=== PATIENT | female | born 1945 | race African-American/Black ===

== ENCOUNTER 2017-06-08 12:51 | Outpatient (CLI) | payer MEDICARE | END 2017-06-08 12:52 | disposition home or self-care (01) | LOC: BICBD 12:51 | PROVIDERS: ATTEND Family Medicine | DX: Z12.31 Encounter for screening mammogram for malignant neoplasm of breast (principal); Z13.820 Encounter for screening for osteoporosis; M85.859 Other specified disorders of bone density and structure, unspecified thigh | CPT/HCPCS: 77063; 77067; 77080 ==

== ENCOUNTER 2017-06-17 13:42 | Outpatient (CLI) | payer MEDICARE | END 2017-06-17 13:43 | disposition home or self-care (01) | LOC: BICMAMMO 13:42 | PROVIDERS: ATTEND Family Medicine | DX: Z12.31 Encounter for screening mammogram for malignant neoplasm of breast (principal); Z80.3 Family history of malignant neoplasm of breast | CPT/HCPCS: G0206; G0279 ==

== ENCOUNTER 2017-10-29 21:43 | Observation (INO) | payer MEDICARE ==
--- NOTE | 2017-10-29 22:31 | RAD ---
ONE VIEW CHEST: 10/29/17 COMPARISON: 03/22/16 HISTORY: Pain. FINDINGS: There are sternotomy wires. Atherosclerosis of the aorta. Normal cardiac silhouette. The lungs and pl eural spaces are clear. No pneumothorax. Chronic changes of the right shoulder. IMPRESSION: Atherosclerosis. No acute cardiopulmonary process. POS: [facility]
[2017-10-29 22:32] LABS: #Eosinphils 0.1 thou/uL (0.0-0.7); #Lymphocytes 3.7 thou/uL (1.20-3.40); #Monocytes 0.7 thou/uL (0.11-0.59); #Neutrophils 3.1 thou/uL (1.40-6.50); %Basophils 0.6 % (0.0-1.0); %Eosinophils 1.9 % (0.0-10.0); %Lymphocytes 47.9 % (21.0-51.0); %Monocytes 8.6 % (0.0-10.0); %Neutrophils 40.9 % (42.0-75.0); Mean Corpuscular HGB CONC 33.9 g/dL (32.0-36.0); Mean Corpuscular Hemoglobin 28.6 pg (27.0-31.0); Mean Corpuscular Volume 84.2 fl (81.0-99.0); Mean Platelet Volume 7.7 fL (7.4-10.4); Platelet Count 205 thou/uL (130-400); RBC Distribution Width 11.9 % (11.5-14.5); Red Blood Cell (RBC) Count 4.55 mill/uL (4.20-5.40); White Blood Cell (WBC) Count 7.6 thou/uL (4.8-10.8)
[2017-10-29 22:54] LABS: ALT (SGPT) 19 U/L (8-55); AST (SGOT) 22 U/L (5-34); Albumin 3.7 g/dL (3.4-4.8); Alkaline Phosphatase 95 U/L (40-150); Anion Gap 15 mmol/L (10-20); BUN (Urea Nitrogen) 14 mg/dL (9.8-20.1); Bilirubin, Total 0.3 mg/dL (0.2-1.2); CK (CPK) 134 U/L (29-168); Calc. Creatinine Clearance 0 mL/min (70-130); Calcium 9.6 mg/dL (7.8-10.44); Carbon Dioxide 28 mmol/L (23-31); Chloride 102 mmol/L (98-107); Estimated GFR-MDRD 63; Globulin 3.3 g/dL (2.4-3.5); Glucose 133 mg/dL (83-110); Lipase 29 U/L (8-78); Potassium 3.9 mmol/L (3.5-5.1); Sodium 141 mmol/L (136-145)
[2017-10-29 22:57] LABS: CKMB 1.3 ng/mL (0-6.6); Troponin I 0.044 ng/mL (< 0.028)
--- NOTE | 2017-10-29 23:47 | PDOC.FPRHP ---
- History of Present Illness Chief Complaint: palpitations History of Present Illness: 72 yo F w/ PMH of CAD, w/ valve repiar, DM2, HTN, HLD, CKD2 comes in with palpitations. She states she often has palpitations a few times a week but today she had 2-3 episodes in close succession so decided to come in for evaluation. During hospitalization in 2016 she was noted to have a 10 beat run of non-sustained vtach and d/c'd home with metoprolol. She denies any chest pain or shortness of breath. She was sitting when the palpitations came on, they last less than 10 seconds at a time. She has had a mild cough for the last week or so, non-productive. The patient has been very anxious as of late especially over financial constraints. ED Course: EKG unremarkable trop 0.44 - Allergies/Adverse Reactions Allergies Allergy/AdvReac Type Severity Reaction Status Date / Time codeine Allergy Verified 03/22/16 22:08 nitroglycerin Allergy Rash Verified 10/30/17 01:28 Penicillins Allergy Verified 03/22/16 22:08 - Home Medications Medication Instructions Recorded Confirmed Type Aspirin [Aspirin EC] 1 tab PO DAILY 12/31/15 10/30/17 History Ferrous Sulfate [Iron] 1 cap PO DAILY 12/31/15 10/30/17 History Cholecalciferol (Vitamin D3) 1,000 unit PO DAILY 02/20/16 10/30/17 History [Vitamin D3] Atorvastatin Calcium 40 mg PO HS #30 tablet 03/24/16 10/30/17 Rx Metoprolol Tartrate 25 mg PO BID #60 tab 03/24/16 10/30/17 Rx metFORMIN HCl 500 mg PO BID-WM #60 tab 03/24/16 10/30/17 Rx Celecoxib [Celebrex] 100 mg PO BID 10/29/17 10/30/17 History Escitalopram Oxalate 5 mg PO DAILY PRN 10/29/17 10/29/17 History Lorazepam [Ativan] 0.5 mg PO BID PRN 10/29/17 10/29/17 History Valsartan/Hydrochlorothiazide 1 tab PO DAILY 10/29/17 10/30/17 History [Valsartan-Hctz 160-12.5 mg Tab] amLODIPine Besylate [Norvasc] 5 mg PO DAILY 10/30/17 10/30/17 History diphenhydrAMINE HCl/Zinc Acet 1 applic TOP DAILY PRN 10/30/17 10/30/17 History [Banophen Anti-Itch 2% Cream] - History PMHx: CAD, s/p repair, palpitations, HTN, HLD, hepatic steatosis, OA, CKD2, TIA PSHx: Aortic valve repair 2016, cath with no stents in 2016 per patient, tubal ligation FHx: heart disease in mother and father Social: 60 pack-year smoking history, quit in 2004, no alcohol or drugs - Review of Systems General: denies: fever/chills ENT: denies: nasal congestion, rhinorrhea Respiratory: denies: cough, shortness of breath Cardiovascular: reports: palpitation. denies: chest pain, orthopnea Gastrointestinal: denies: nausea, vomiting, diarrhea, constipation, abdominal pain, GI bleeding Genitourinary: denies: incontinence, dysuria Skin: denies: rashes, itching Musculoskeletal: reports: arthritis/arthralgias. denies: pain Neurological: denies: numbness, weakness Psychological: reports: anxiety. denies: depression - Vital signs BP: 159/69 HR: 71 RR: 18 Tmax: 98.4 Pox: 99% on RA Wt: 66.5 - Physical Exam Constitutional: NAD, awake, alert and oriented HEENT: normocephalic and atraumatic, PERRLA Neck: supple Heart: RRR, normal S1/S2, no murmurs/rubs/gallops, pulses present, no edema Lungs: CTAB, no respiratory distress, good air movement Abdomen: soft, non-tender, bowel sounds present, no masses/distention Musculoskeletal: normal structure, ROM grossly normal Neurological: no focal deficit Skin: no rash/lesions, capillary refill <2 seconds FMR H&P: Results - Labs Result Diagrams: 10/29/17 22:23 10/29/17 22:23 Lab results: WBC 7.6 thou/uL (4.8-10.8) 10/29/17 22:23 Hgb 13.0 g/dL (12.0-16.0) 10/29/17 22:23 Hct 38.4 % (36.0-47.0) 10/29/17 22:23 MCV 84.2 fl (81.0-99.0) 10/29/17 22:23 Plt Count 205 thou/uL (130-400) 10/29/17 22:23 Neutrophils % 40.9 % (42.0-75.0) L 10/29/17 22:23 Sodium 141 mmol/L (136-145) 10/29/17 22:23 Potassium 3.9 mmol/L (3.5-5.1) 10/29/17 22:23 Chloride 102 mmol/L (98-107) 10/29/17 22:23 Carbon Dioxide 28 mmol/L (23-31) 10/29/17 22:23 BUN 14 mg/dL (9.8-20.1) 10/29/17 22:23 Creatinine 1.04 mg/dL (0.6-1.1) 10/29/17 22:23 Glucose 133 mg/dL (83-110) H 10/29/17 22:23 Calcium 9.6 mg/dL (7.8-10.44) 10/29/17 22:23 Total Bilirubin 0.3 mg/dL (0.2-1.2) 10/29/17 22:23 AST 22 U/L (5-34) 10/29/17 22:23 ALT 19 U/L (8-55) 10/29/17 22:23 Alkaline Phosphatase 95 U/L (40-150) 10/29/17 22:23 Creatine Kinase 134 U/L (29-168) 10/29/17 22:23 CK-MB (CK-2) 1.3 ng/mL (0-6.6) 10/29/17 22:23 B-Natriuretic Peptide 158.5 pg/mL (0-100) H 10/29/17 22:23 Serum Total Protein 7.0 g/dL (6.0-8.3) 10/29/17 22:23 Albumin 3.7 g/dL (3.4-4.8) 10/29/17 22:23 Lipase 29 U/L (8-78) 10/29/17 22:23 FMR H&P: A/P - Problem List (1) Heart palpitations Current Visit: Yes Status: Acute Code(s): R00.2 - PALPITATIONS (2) Elevated troponin Current Visit: Yes Status: Acute Code(s): R74.8 - ABNORMAL LEVELS OF OTHER SERUM ENZYMES (3) Anxiety Current Visit: No Status: Acute Code(s): F41.9 - ANXIETY DISORDER, UNSPECIFIED (4) CKD (chronic kidney disease) stage 2, GFR 60-89 ml/min Current Visit: No Status: Acute Code(s): N18.2 - CHRONIC KIDNEY DISEASE, STAGE 2 (MILD) (5) HLD (hyperlipidemia) Current Visit: No Status: Acute Code(s): E78.5 - HYPERLIPIDEMIA, UNSPECIFIED (6) HTN (hypertension) Current Visit: No Status: Acute Code(s): I10 - ESSENTIAL (PRIMARY) HYPERTENSION (7) S/P AVR (aortic valve replacement) Current Visit: No Status: Acute Code(s): Z95.2 - PRESENCE OF PROSTHETIC HEART VALVE - Plan # Palpitations - check TSH, mag - admit to tele - repeat EKG in the AM - history of non-sustained Vtach during admit in 2016 - home metoprolol # Elevated troponin - trop 0.44, 0.1-0.15 during admit in 2016 - hx of indeterminate trops - likely chronic, will trend # HTN - home meds #HLD, hepatic steatosis - home statin # s/p valve replacement # Anxiety - home escitalopram, ativan - was just started on the above 1 month ago 2/2 stress over finances Dispo: <48 hours FMR H&P: Upper Level - Pertinent history 72 yo F with PMH of CAD s/p CABG, HTN, HLD presenting with multiple episodes of heart palpitations today. During last hospitalization, she was noted to have a run of 10 beats of Vtach. Denies any SOB, CP, dizziness, lightheadedness, vision changes, N/V, diaphoresis with these episodes, which only usually last a few seconds at most. No difference when at rest or with activity with respect to their occurence. - Pertinent findings PE: BP: 159/69 HR: 71 RR: 18 Tmax: 98.4 Pox: 99% on RA Wt: 66.5 Gen: [place] female in NAD HEENT: PERRL, EOMI, MMM, no lymphadenopathy or thyromegaly CV: RRR no murmurs, distal pulses intact Pulm: CTAB, no wheezes or rhonchi Abd: soft, NT/ND, BS present, no masses or distention Ext: no cyanosis or edema MSK: OCAMPO well, no joint or muscle pain or swelling Neuro: CN 2-12 intact, normal sensation Skin: no rashes or lesions Psych: A&O x3, appropriate in conversation - Plan Date/Time: 10/29/17 2347 72 yo F here with palpitations. 1) Palpitations: DDx includes anxiety vs arrhythmia vs ischemia. Will observe on telemetry, continue to trend troponins, check Mag, Phos, TSH. Would likely benefit from close outpatient cardiology follow up. 2) CAD: continue ASA, metoprolol, statin 3) HTN: continue home medications 4) DM2: continue metformin 5) anxiety: continue home hannah Downing, [Hernando Brooke], have evaluated this patient and agree with findings/plan as outlined by manager intern resident. Pertinent changes/additions are listed here. Attending Addendum - Attending Addendum Date/Time: 10/29/17 3150 I personally evaluated the patient and discussed the management with Dr. Moncada/ Edwardo. I agree with the History, Examination, Assessment and Plan documented above with any addition or exceptions noted below. Patient with pertinent cardiac history here with palpitations. History of this in 2016 due to SVT that has been controlled on metoprolol. She currently has no evidence of abnormal rhythm, and denies chest pain. SHe will be admitted to obs for rule out ACS as well as telemetry monitoring for dysrhythmia. If no evidence of either, can likely discharge home in AM with outpatient follow up.
[2017-10-30] MEDS ORDERED: Lorazepam 0.5 MG TAB PO PRN (00:07)
[2017-10-30] MEDS ORDERED: Metoprolol Tartrate 5 MG/5 ML VIAL ONE (00:09)
[2017-10-30] MEDS ORDERED: Ondansetron ODT 4 MG TAB PO PRN (01:01)
[2017-10-30] MEDS ORDERED: Acetaminophen 325 MG TAB PO PRN (01:01)
[2017-10-30 01:44] VITALS: BMI 27.2
[2017-10-30 02:00] LABS: Troponin I 0.042 ng/mL (< 0.028)
[2017-10-30 05:37] LABS: Troponin I 0.041 ng/mL (< 0.028)
[2017-10-30] MEDS ORDERED: metFORMIN 500 MG TAB PO SCH (08:00)
[2017-10-30] MEDS ORDERED: Aspirin 325 MG TAB PO SCH (08:00)
[2017-10-30] MEDS ORDERED: Ferrous Sulfate 325 MG TAB PO SCH (08:00)
--- NOTE | 2017-10-30 08:50 | PDOC.FM ---
- Subjective Subjective: Pt came in with palpitations yesterday, no chest pain. Resolved this am. Alfonsoies sx. Was trey overnight on tele in the 50s with occasional PVCs. She had a echo in february 2016 showing EF 50-55%. Had aortic valve replaced in December 2015. - Objective MAR Reviewed: Yes Vital Signs & Weight: Vital Signs (12 hours) Temp Pulse Resp BP BP Pulse Ox 10/30/17 07:05 97.7 F 62 12 136/60 93 L 10/30/17 03:59 98.4 F 61 16 149/70 H 92 L 10/30/17 02:02 56 L 16 148/67 H 10/30/17 01:16 97.9 F 56 L 20 10/30/17 01:01 97.9 F 56 L 20 187/79 H 98 Weight Weight 67.631 kg I&O: 10/29/17 10/30/17 10/31/17 06:59 06:59 06:59 Intake Total 0 Output Total 300 Balance -300 Result Diagrams: 10/29/17 22:23 10/29/17 22:23 <Vicky Alvarez - Last Filed: 10/30/17 08:55> - Objective Vital Signs & Weight: Vital Signs (12 hours) Temp Pulse Resp BP BP BP Pulse Ox 10/30/17 10:30 98.1 F 60 12 147/65 H 93 L 10/30/17 08:53 62 10/30/17 08:00 97.7 F 62 16 10/30/17 07:05 97.7 F 62 12 136/60 93 L 10/30/17 03:59 98.4 F 61 16 149/70 H 92 L 10/30/17 02:02 56 L 16 148/67 H 10/30/17 01:16 97.9 F 56 L 20 10/30/17 01:01 97.9 F 56 L 20 187/79 H 98 Weight Weight 67.631 kg I&O: 10/29/17 10/30/17 10/31/17 06:59 06:59 06:59 Intake Total 0 Output Total 300 450 Balance -300 -450 Result Diagrams: 10/29/17 22:23 10/29/17 22:23 <Elissa Naqvi - Last Filed: 10/30/17 12:37> Phys Exam - Physical Examination Constitutional: NAD HEENT: PERRLA, moist MMs Respiratory: no wheezing, no rales, no rhonchi, clear to auscultation bilateral Cardiovascular: RRR, no significant murmur Gastrointestinal: soft, non-tender, no distention Musculoskeletal: no edema, pulses present Psychiatric: normal affect, A&O x 3 Skin: no rash, normal turgor, cap refill <2 seconds <Vicky Alvarez - Last Filed: 10/30/17 08:55> Dx/Plan (1) Type 2 diabetes mellitus Status: Acute (2) Elevated troponin Code(s): R74.8 - ABNORMAL LEVELS OF OTHER SERUM ENZYMES Status: Acute (3) Heart palpitations Code(s): R00.2 - PALPITATIONS Status: Acute (4) Anxiety Code(s): F41.9 - ANXIETY DISORDER, UNSPECIFIED Status: Acute (5) HLD (hyperlipidemia) Code(s): E78.5 - HYPERLIPIDEMIA, UNSPECIFIED Status: Acute (6) HTN (hypertension) Code(s): I10 - ESSENTIAL (PRIMARY) HYPERTENSION Status: Acute (7) S/P AVR (aortic valve replacement) Code(s): Z95.2 - PRESENCE OF PROSTHETIC HEART VALVE Status: Acute - Plan Plan: 72 yo female with pmhx of aortic valve replacement in 2016 presents with palpitations, with 10 beats of vtach in 2016, admitted for observation. # Palpitations - TSH wnl, mg wnl - last echo in 2016, will repeat - consider cards consult - EKG pending this am - history of non-sustained Vtach during admit in 2016 - home metoprolol # Elevated troponin - downtrending - hx of indeterminate trops - no chest pain and initial EKG wnl # HTN - valsartain/hctz (160/12.5) and amlodipine 5mg daily #HLD - atorvastatin 40mg daily # s/p valve replacement -Sees Dr. Geiger #DM2 -SSI -metformen 500mg BID # Anxiety - escitalopram, ativan - was just started on the above 1 month ago 2/2 stress over finances Dispo: <48 hours <Vicky Alvarez - Last Filed: 10/30/17 08:55> Attending Addendum - Attending Addendum Date/Time: 10/30/17 1234 I personally evaluated the patient and discussed the management with Dr. Alvarez. I agree with the History, Examination, Assessment and Plan documented above with any addition or exceptions noted below. No palpitations overnight. Cardiology will see the patient for further evaluations. <Elissa Naqvi - Last Filed: 10/30/17 12:37>
[2017-10-30] MEDS ORDERED: Metoprolol Tartrate 25 MG TAB PO SCH ×3 (09:00→21:00)
[2017-10-30] MEDS ORDERED: Hydrochlorothiazide 25 MG TAB PO SCH (09:00)
[2017-10-30] MEDS ORDERED: CeleCOXIB 100 MG CAP PO SCH (09:00)
[2017-10-30] MEDS ORDERED: Aspirin 325 mg Enteric Coated Tablet PO SCH (09:00)
[2017-10-30] MEDS ORDERED: Amlodipine 5 MG TAB PO SCH (09:00)
[2017-10-30] MEDS ORDERED: Enoxaparin Sodium 40 MG/0.4 ML SYRINGE SC SCH (09:00)
[2017-10-30] MEDS ORDERED: Escitalopram Oxalate 10 mg Tablet PO SCH (09:00)
[2017-10-30] MEDS ORDERED: Valsartan 80 MG TAB PO SCH (09:00)
[2017-10-30 11:24] VITALS: BP 147/65; TEMP 98.1
--- NOTE | 2017-10-30 12:47 | CON ---
DATE OF CONSULTATION: 10/30/2017 HISTORY OF PRESENT ILLNESS: This patient is a 72-year-old woman with a history of aortic valve replacementwho presents for evaluation of palpitations. The patient in 2016 underwent a cardiac evaluation. She was found to have severe aortic stenosis. The patient subsequently underwent a cardiac catheterization. She was found to have a 40%-50% lesion in left circumflex artery, 50%-60% distal left circumflex lesion, and a 30%-40% RCA lesion. The patient underwent aortic valve replacement. The patient was in her usual state of health until yesterday when she presented with the onset of palpitations. The patient states for a brief second or two the patient would feel brief palpitations that would last a second or two. This occurred for a prolonged period of time, and she came to the emergency room for further evaluation. The patient denied having any chest discomfort. She reports having dyspnea on exertion. The patient denies having any PND or orthopnea. PAST MEDICAL HISTORY: 1. History of hypertension. 2. Coronary artery disease. 3. History of aortic valve replacement. 4. Arthritis. 5. History of transient ischemic attack. PAST SURGICAL HISTORY: Tubal ligation, cholecystectomy, and aortic valve replacement. ALLERGIES: CODEINE and PENICILLIN. SOCIAL HISTORY: Former smoker. MEDICATIONS ON ADMISSION: Aspirin 81 daily, Diovan 160/12.5 daily, metoprolol 25 b.i.d., iron sulfate 1 capsule daily, Lipitor 40 at bedtime, metformin 500 b.i.d., Celebrex 100 b.i.d. REVIEW OF SYSTEMS: A 10-point system, otherwise, unremarkable except for joint discomfort. PHYSICAL EXAMINATION: GENERAL: A well-developed woman in no acute distress. VITAL SIGNS: Blood pressure 147/65. NECK: No jugular distention, no carotid bruits. LUNGS: Clear to auscultation. HEART: Regular rate and rhythm, normal S1 and S2. A 1/6 systolic murmur. ABDOMEN: Soft and nondistended. EXTREMITIES: Showed no edema. SKIN: Warm and dry. NEUROLOGIC EXAM: Nonfocal. VASCULAR: Radial pulses are 2+. LABORATORY RESULTS: Her white blood count 7.6, hemoglobin 13.0, hematocrit 38.4 , platelets are 205. Her sodium is 141, potassium 3.9 chloride 102, bicarbonate 28, BUN 14, creatinine is 1.0, glucose 133. BNP is 158. Troponin was 0.44. TSH was 1.79. White blood cell count 7.6, hemoglobin 13.0, hematocrit 38.4, platelets 205. D-dimer was 0.38. Her EKG revealed her to have normal sinus rhythm with a normal ECG. IMPRESSION: 1. Palpitations. 2. History of aortic valve replacement. 3. History of coronary artery disease. 4. History of transient ischemic attack. 5. Hypertension. 6. Dyslipidemia. 7. History of tobacco abuse. This patient presents for evaluation of palpitations. From a cardiac standpoint , we would recommend she have placement of an event monitor. I would recommend a repeat echocardiogram and reevaluate her left ventricular function. We will arrange for outpatient followup. RANDY
[2017-10-30] MEDS ORDERED: Atorvastatin Calcium 40 MG TAB PO SCH (21:00)
== END 2017-10-30 14:33 | disposition home or self-care (01) ==
LOC: ERS 21:43 → 2SW 23:00
PROVIDERS: ADMIT Student in an Organized Health Care Education/Training Program; ATTEND Student in an Organized Health Care Education/Training Program
DX: R00.2 Palpitations (principal); I25.10 Atherosclerotic heart disease of native coronary artery without angina pectoris; I12.9 Hypertensive chronic kidney disease with stage 1 through stage 4 chronic kidney disease, or unspecified chronic kidney disease; E11.22 Type 2 diabetes mellitus with diabetic chronic kidney disease; N18.2 Chronic kidney disease, stage 2 (mild); E78.5 Hyperlipidemia, unspecified; M19.90 Unspecified osteoarthritis, unspecified site; R74.8 Abnormal levels of other serum enzymes; K76.0 Fatty (change of) liver, not elsewhere classified; F41.9 Anxiety disorder, unspecified; Z86.73 Personal history of transient ischemic attack (TIA), and cerebral infarction without residual deficits; Z87.891 Personal history of nicotine dependence; Z88.0 Allergy status to penicillin; Z88.5 Allergy status to narcotic agent; Z88.8 Allergy status to other drugs, medicaments and biological substances; Z79.82 Long term (current) use of aspirin; Z79.84 Long term (current) use of oral hypoglycemic drugs; Z79.899 Other long term (current) drug therapy; Z95.2 Presence of prosthetic heart valve; Z95.1 Presence of aortocoronary bypass graft
CPT/HCPCS: 71045; 82550; 82553; 82962; 83690; 83735; 83880; 84484 ×3; 85379; 93005 ×2; 94760; 96374; 97139; 99285; G0378; 36415; 36416; 80053; 84443; 85025; 93010

== ENCOUNTER 2017-11-11 14:36 | Inpatient (IN) | payer MEDICARE ==
[2017-11-11 14:57] VITALS: BMI 26.4
[2017-11-11 16:18] LABS: #Eosinphils 0.3 thou/uL (0.0-0.7); #Lymphocytes 3.1 thou/uL (1.20-3.40); #Monocytes 0.5 thou/uL (0.11-0.59); %Basophils 0.5 % (0.0-1.0); %Monocytes 7.5 % (0.0-10.0); Hemoglobin 15.1 g/dL (12.0-16.0); Mean Corpuscular HGB CONC 33.2 g/dL (32.0-36.0); Mean Corpuscular Hemoglobin 28.1 pg (27.0-31.0); Mean Corpuscular Volume 84.6 fL (78.0-98.0); Mean Platelet Volume 7.8 fL (7.4-10.4); Platelet Count 238 thou/uL (130-400); RBC Distribution Width 12.1 % (11.5-14.5); Red Blood Cell (RBC) Count 5.37 mill/uL (4.20-5.40)
[2017-11-11 16:46] LABS: CKMB 2.1 ng/mL (0-6.6); Troponin I 0.048 ng/mL (< 0.028)
[2017-11-11] MEDS ORDERED: Escitalopram Oxalate 10 mg Tablet PO PRN (17:15)
[2017-11-11] MEDS ORDERED: diphenhydrAMINE 2% CREAM 28.4 GM TUBE TOP PRN (17:15)
[2017-11-11] MEDS ORDERED: Lorazepam 0.5 MG TAB PO PRN (17:16)
[2017-11-11] MEDS: metFORMIN 500 MG TAB PO SCH (17:50)
[2017-11-11] MEDS ORDERED: Sodium Chloride 0.9% 1,000 ML IV SCH (18:15)
[2017-11-11] MEDS ORDERED: Communication Order-Pharmacy FS SCH (18:15)
[2017-11-11 19:29] LABS: Anion Gap 17 mmol/L (10-20); BUN (Urea Nitrogen) 12 mg/dL (9.8-20.1); Calc. Creatinine Clearance 61 mL/min (70-130); Calcium 10.7 mg/dL (7.8-10.44); Carbon Dioxide 25 mmol/L (23-31); Chloride 101 mmol/L (98-107); Estimated GFR-MDRD 78; Glucose 121 mg/dL (83-110); Potassium 3.8 mmol/L (3.5-5.1); Sodium 139 mmol/L (136-145)
[2017-11-11] MEDS ORDERED: Atorvastatin Calcium 40 MG TAB PO SCH (21:00)
[2017-11-12] MEDS: CeleCOXIB 100 MG CAP PO SCH ×2 (00:05→10:02)
[2017-11-12] MEDS: Metoprolol Tartrate 25 MG TAB PO SCH ×2 (00:05→10:03)
[2017-11-12] MEDS ORDERED: Sodium Chloride 0.9% 1,000 ML IV SCH ×2 (06:00→09:30)
[2017-11-12] MEDS ORDERED: Magnesium Sulfate 2 GM in Sodium Chloride 0.9% 100 ML IVPB SCH (06:15)
[2017-11-12] MEDS ORDERED: Lidocaine 1% (PF) 30 ML VIAL ONE (07:00)
[2017-11-12] MEDS ORDERED: Midazolam HCl 2 mg/2 ml Vial ONE (08:28)
[2017-11-12] MEDS ORDERED: Fentanyl 100 MCG/2 ML VIAL ONE (08:28)
[2017-11-12] MEDS ORDERED: Heparin 10,000 UNITS/1 ML VIAL ONE (08:33)
[2017-11-12] MEDS ORDERED: Nitroglycerin 100MG/250ML BOT 250 ML ONE (08:33)
[2017-11-12] MEDS ORDERED: Verapamil 5 MG/2 ML VIAL ONE (08:33)
[2017-11-12] MEDS ORDERED: Amlodipine 5 MG TAB PO SCH (09:00)
[2017-11-12] MEDS ORDERED: Ferrous Sulfate 325 MG TAB PO SCH (09:00)
[2017-11-12] MEDS ORDERED: Aspirin 325 mg Enteric Coated Tablet PO SCH (09:00)
[2017-11-12] MEDS ORDERED: Sodium Chloride 0.9% 200 ML IV PRN (09:30)
[2017-11-12] MEDS: metFORMIN 500 MG TAB PO SCH (11:10)
[2017-11-12] MEDS ORDERED: Iopamidol 370 76% 100 ML VIAL ONE (12:18)
[2017-11-12 15:30] VITALS: BP 110/56; TEMP 97.8
--- NOTE | 2017-11-12 15:30 | SS ---
DATE OF ADMISSION: 11/11/2017 DATE OF DISCHARGE: 11/12/2017 DISCHARGE DIAGNOSIS: Non-sustained ventricular tachycardia. CONSULTATIONS: None. PROCEDURE: Coronary angiography. HOSPITAL COURSE: Ms. Sandhu is a very pleasant 72-year-old woman who was having episodes of nonsus tained VT with intermittent dizziness. No syncope or presyncope. She was subsequently admitted. Sh arlet underwent coronary angiography on 11/12/2017. There was no difference in her underlying anatomy ve rsus 2 years ago. She had a moderate disease present in the circumflex artery in addition to moderat e disease of the right coronary artery. This was a radial approach. She had faint pulse in the righ t femoral artery and nonpalpable pulse in the left. Her magnesium level was felt to be low. She was supplemented magnesium with increase. She had no ve ntricular dysrhythmias on the monitor. Her LVEF was felt to be within normal limits. She was discha rged in stable condition. Her hydrochlorothiazide was discontinued. Losartan was continued. She wa s placed on mag oxide. DISCHARGE MEDICATIONS: Norvasc 5 mg daily, aspirin 325 daily, Lipitor 40 daily, vitamin D3, Lexapro 5 mg daily, iron sulfate, Ativan 0.5 mg p.r.n., metoprolol 25 b.i.d. and mag oxide 400 mg p.o. b.i.d. CONDITION OF DISCHARGE: Stable.
[2017-11-12] MEDS ORDERED: Magnesium Oxide 400 MG TAB PO SCH (21:00)
--- NOTE | 2017-11-13 08:39 | CON ---
DATE OF CONSULTATION: 11/11/2017 ELECTROPHYSIOLOGY CONSULTATION REPORT ATTENDING PHYSICIAN: Fransisco Mcgill MD HISTORY OF PRESENT ILLNESS: I am seeing Ms. Herndon at our [facility] telemetry floor as a n electrophysiology call center consultant. Her problems are: 1. Nonsustained wide-complex tachycardia on monitoring by Dr. Mcgill. 2. History of aortic valve replacement for aortic stenosis in 2016. 3. Nonocclusive coronary artery disease with 40%-50% lesion in the left circumflex, 56% distal circu mflex lesion, 30%-40% RCA lesion on the left heart catheterization at that time. 4. History of transient ischemic attack. ALLERGIES: CODEINE and PENICILLIN. MEDICATIONS AT HOME: Included aspirin, ferrous sulfate, cholecalciferol, Lipitor, metformin, metopro lol, , valsartan, lorazepam, escitalopram, diphenhydramine, amlodipine. SUBJECTIVE: Ms. Herndon has been experiencing palpitations. She had been wearing an event monitor as per Dr. Mcgill's office, which eventually revealed nonsustained ventricular arrhythmia around. Hence she was admitted for repeat ischemic evaluation and heart catheterization. Overall, she is do ing fair right now. She denies PND, orthopnea, lower extremity edema. She does not pass out with th chepe episodes. No stroke-like symptoms. No neurological deficits. Her surgical scar is well healed. Rest of 12-point system is otherwise unremarkable. PAST MEDICAL HISTORY: As above surgical history is significant for the aortic valve replacement. Sh arlet also carries a history of hypertension, hyperlipidemia, osteoarthritis, and likely some borderline diabetes since the patient is on metformin. SOCIAL HISTORY: No smoking, ETOH, or drug abuse. FAMILY HISTORY: Noncontributory. OBJECTIVE: VITAL SIGNS: Blood pressure is 187/79, heart rate 53, respiratory rate 18, temperature 97.5 degrees Fahrenheit. GENERAL: This is an alert and oriented woman in no apparent distress. NECK: Supple. Jugular veins are not distended. CHEST: Coarse without crackles. Midsternal scar is appreciated. CARDIOVASCULAR: Heart sounds are regular to rate and rhythm. No murmur or gallop. ABDOMEN: Benign. Bowel sounds are positive. EXTREMITIES: Lower extremities without edema, clubbing, or cyanosis. DATABASE: EKG reveals sinus rhythm. No sensory changes. Telemetry strips revealed no arrhythmias. LABORATORY DATA: The CBC and BMP are all in normal ranges. Troponin is 0.048. ASSESSMENT AND PLAN: Ms. Herndon is a 72-year-old woman with history of aortic valve replacement, n ormal left ventricular ejection fraction, only nonocclusive coronary artery disease in the past. She has been admitted with palpitations and underwent event monitor, which did reveal run of wide-comple x tachycardia. The actual strip is not available to me, but ventricular tachycardia is a possible di agnosis. She was admitted to re-evaluate her cardiac function including her coronary artery disease. I think it is very reasonable to proceed with repeat ischemic evaluation as Dr. Mcgill plans wit h left heart catheterization. 2D echo was ordered. We will continue to monitor her. If all these f indings were normal , beta sea regimen could be reasonable. If the palpitations and arrhyth mias persist, further EP study and ablation procedures could be considered. Thank you again for allowing me to participate in the care of this patient.
[2017-11-13] MEDS ORDERED: Valsartan 80 MG TAB PO SCH (09:00)
== END 2017-11-12 16:06 | disposition home or self-care (01) | DRG 287 ==
LOC: 2SE 14:36
PROVIDERS: ADMIT Internal Medicine Cardiovascular Disease; ATTEND Internal Medicine Cardiovascular Disease
PROC: 4A023N7 Measurement of Cardiac Sampling and Pressure, Left Heart, Percutaneous Approach (ICD-10-PCS; principal; 2017-11-12)
PROC: B2111ZZ Fluoroscopy of Multiple Coronary Arteries using Low Osmolar Contrast (ICD-10-PCS; 2017-11-12)
DX: I47.2 Ventricular tachycardia (principal); E78.5 Hyperlipidemia, unspecified; I25.10 Atherosclerotic heart disease of native coronary artery without angina pectoris; I10 Essential (primary) hypertension; M19.90 Unspecified osteoarthritis, unspecified site; Z86.73 Personal history of transient ischemic attack (TIA), and cerebral infarction without residual deficits; Z95.2 Presence of prosthetic heart valve; Z88.0 Allergy status to penicillin; Z88.5 Allergy status to narcotic agent; Z79.899 Other long term (current) drug therapy
CPT/HCPCS: 36415; 36416; 76942; 80048; 82553; 83735; 84443; 84484; 85025; 93306; 93454; 99152; C1769; C1887; J1644; J2001; J2250; J3010; J3475; J7050

== ENCOUNTER 2017-11-23 23:47 | Inpatient (IN) | payer MEDICARE ==
[2017-11-24 00:38] LABS: ALT (SGPT) 18 U/L (8-55); AST (SGOT) 22 U/L (5-34); Albumin 4.3 g/dL (3.4-4.8); Alkaline Phosphatase 112 U/L (40-150); Anion Gap 12 mmol/L (10-20); BUN (Urea Nitrogen) 9 mg/dL (9.8-20.1); Bilirubin, Total 0.2 mg/dL (0.2-1.2); Calc. Creatinine Clearance 0 mL/min (70-130); Calcium 10.1 mg/dL (7.8-10.44); Carbon Dioxide 31 mmol/L (23-31); Chloride 103 mmol/L (98-107); Estimated GFR-MDRD 66; Globulin 3.6 g/dL (2.4-3.5); Glucose 101 mg/dL (83-110); Protein, Total 7.9 g/dL (6.0-8.3); Sodium 142 mmol/L (136-145)
[2017-11-24 00:42] LABS: CKMB 2.2 ng/mL (0-6.6); Eosinophils 5 % (0-10); Hemoglobin 13.4 g/dL (12.0-16.0); Lymphocytes 72 % (21-51); MDiff Complete? YES; Mean Corpuscular HGB CONC 32.9 g/dL (32.0-36.0); Mean Corpuscular Hemoglobin 28.1 pg (27.0-31.0); Mean Corpuscular Volume 85.3 fL (78.0-98.0); Mean Platelet Volume 7.9 fL (7.4-10.4); Monocytes 1 % (0-10); Neutrophil 21 % (42-75); PLT Morphology Comment Appears Adequate; Platelet Count 249 thou/uL (130-400); RBC Distribution Width 12.1 % (11.5-14.5); Red Blood Cell (RBC) Count 4.78 mill/uL (4.20-5.40); Troponin I 0.052 ng/mL (< 0.028)
--- NOTE | 2017-11-24 02:42 | PDOC.FPRHP ---
- History of Present Illness Chief Complaint: shortness of breath History of Present Illness: Ms. Herndon presents with SOB. She reports that this happens frequently, ever since she started to have issues with her aortic valve (now s/p replacement), but symptoms were worse this evening which prompted her to present to the ER. She was sitting on the couch and at 2200 felt like she was "trying to come out of water". Denies chest pain, dyspnea on exertion, diaphoresis, fevers, chills or cough. Patient follows with Dr. Mcgill outpatient and was on her day of wearing a Holter monitor. She had just removed the monitor for comfort when her symptoms began. She was scheduled by Dr. Mcgill for further cardiac testing 12/10/17. On chart review, patient has history of non-sustained ventricular tachycardia. Cath done 11/12/2017. Echo done 11/12/17 shoed LVEF 55-60%, mild LVH, suggested diastolic dysfunction. ED Course: EKG, troponins, CXR, basic labs - Allergies/Adverse Reactions Allergies Allergy/AdvReac Type Severity Reaction Status Date / Time codeine Allergy Verified 11/24/17 02:46 nitroglycerin Allergy Rash Verified 11/24/17 02:46 Penicillins Allergy Verified 11/24/17 02:46 - Home Medications Medication Instructions Recorded Confirmed Type Cholecalciferol (Vitamin D3) 1,000 unit PO DAILY 02/20/16 11/24/17 History [Vitamin D3] Atorvastatin Calcium 40 mg PO HS #30 tablet 03/24/16 11/24/17 Rx Metoprolol Tartrate 25 mg PO BID #60 tab 03/24/16 11/24/17 Rx Lorazepam [Ativan] 0.5 mg PO BID PRN 10/29/17 11/24/17 History amLODIPine Besylate [Norvasc] 5 mg PO DAILY 10/30/17 11/24/17 History diphenhydrAMINE HCl/Zinc Acet 1 applic TOP PRN PRN 10/30/17 11/24/17 History [Banophen Anti-Itch 2% Cream] Aspirin [Ecotrin Regular Strength] 325 mg PO DAILY tab 11/12/17 11/24/17 Rx Ferrous Sulfate [Feosol] 325 mg PO DAILY tab 11/12/17 11/24/17 Rx Magnesium Oxide 400 mg PO BID 30 Days #60 tab 11/12/17 11/24/17 Rx Valsartan [Diovan] 160 mg PO DAILY 30 Days #30 tab 11/12/17 11/24/17 Rx Escitalopram Oxalate [Lexapro] 5 mg PO DAILY 11/24/17 11/24/17 History metFORMIN [Glucophage] 500 mg PO BID-WM 11/24/17 11/24/17 History - History PMHx:T2DM, HTN, aortic valve replacement, HLD, anxiety/depression, gout, arthritis PSHx: aortic valve replacement, cholecystectomy, tubal ligation FHx:mother-DM, HTN. father-"heart problems". son-colon cancer at age 31. sister- breast cancer Social: Previous smoker, quit 13 yrs ago, 80 pack yr hx. Denies alcohol or drug use. Retired, lives alone. - Review of Systems General: denies: fever/chills, weight/appetite/sleep changes, night sweats, fatigue Eyes: denies: eye pain, vision changes ENT: denies: nasal congestion, rhinorrhea Respiratory: reports: shortness of breath (at rest). denies: cough, exercise intolerance Cardiovascular: denies: chest pain, palpitation, edema Gastrointestinal: reports: diarrhea. denies: nausea, vomiting, abdominal pain, GI bleeding Genitourinary: denies: incontinence, dysuria Skin: denies: rashes, lesions Musculoskeletal: reports: arthritis/arthralgias. denies: tenderness Neurological: denies: numbness, weakness Psychological: reports: anxiety, depression (no suicidal/homocidal ideation) - Vital signs BP: [180/78] HR: [59] RR: [21] Tmax: [97.7] Pox: [97]% on [RA] Wt: [66] - Physical Exam Constitutional: NAD, awake, alert and oriented HEENT: normocephalic and atraumatic, PERRLA, EOMI, no scleral icterus, TM's clear and intact, normal nasal mucosa, MMM Neck: supple, no bruits, other (JVD bilaterally.) Heart: RRR, pulses present, no edema, other (2/6 systolic murmur heard best over aortic listening post) Lungs: CTAB, no rales/rhonchi, no wheezing Abdomen: soft, non-tender, bowel sounds present Musculoskeletal: ROM grossly normal, other (UE and LE muscle strength 5/5) Skin: no rash/lesions, capillary refill <2 seconds Heme/Lymphatic: no unusual bruising or bleeding, no petechia Psychiatric: normal mood and affect, good judgment and insight FMR H&P: Results - Labs Result Diagrams: 11/24/17 00:04 11/24/17 00:03 Lab results: WBC 7.0 thou/uL (4.8-10.8) 11/24/17 00:04 Hgb 13.4 g/dL (12.0-16.0) 11/24/17 00:04 Hct 40.8 % (36.0-47.0) 11/24/17 00:04 MCV 85.3 fL (78.0-98.0) 11/24/17 00:04 Plt Count 249 thou/uL (130-400) 11/24/17 00:04 Sodium 142 mmol/L (136-145) 11/24/17 00:03 Potassium 4.0 mmol/L (3.5-5.1) 11/24/17 00:03 Chloride 103 mmol/L (98-107) 11/24/17 00:03 Carbon Dioxide 31 mmol/L (23-31) 11/24/17 00:03 BUN 9 mg/dL (9.8-20.1) L 11/24/17 00:03 Creatinine 1.00 mg/dL (0.6-1.1) 11/24/17 00:03 Glucose 101 mg/dL (83-110) 11/24/17 00:03 Calcium 10.1 mg/dL (7.8-10.44) 11/24/17 00:03 Total Bilirubin 0.2 mg/dL (0.2-1.2) 11/24/17 00:03 AST 22 U/L (5-34) 11/24/17 00:03 ALT 18 U/L (8-55) 11/24/17 00:03 Alkaline Phosphatase 112 U/L (40-150) 11/24/17 00:03 CK-MB (CK-2) 2.2 ng/mL (0-6.6) 11/24/17 00:04 B-Natriuretic Peptide 183.8 pg/mL (0-100) H 11/24/17 00:01 Serum Total Protein 7.9 g/dL (6.0-8.3) 11/24/17 00:03 Albumin 4.3 g/dL (3.4-4.8) 11/24/17 00:03 - EKG Interpretation EKG: NSR, no acute changes, possible signs of previous infarct FMR H&P: A/P - Problem List (1) Shortness of breath Current Visit: Yes Status: Acute Code(s): R06.02 - SHORTNESS OF BREATH (2) Anxiety Current Visit: No Status: Acute Code(s): F41.9 - ANXIETY DISORDER, UNSPECIFIED (3) Elevated troponin Current Visit: Yes Status: Acute Code(s): R74.8 - ABNORMAL LEVELS OF OTHER SERUM ENZYMES (4) HLD (hyperlipidemia) Current Visit: Yes Status: Acute Code(s): E78.5 - HYPERLIPIDEMIA, UNSPECIFIED (5) HTN (hypertension) Current Visit: Yes Status: Acute Code(s): I10 - ESSENTIAL (PRIMARY) HYPERTENSION (6) Osteoarthritis Current Visit: No Status: Acute Code(s): M19.90 - UNSPECIFIED OSTEOARTHRITIS , UNSPECIFIED SITE (7) S/P AVR (aortic valve replacement) Current Visit: No Status: Acute Code(s): Z95.2 - PRESENCE OF PROSTHETIC HEART VALVE (8) Type 2 diabetes mellitus Current Visit: No Status: Acute - Plan 72 year old F presents with SOB. 1. SOB -DDX includes arrythmia vs anxiety -hx of non sustained Vtach -EKG showed no acute changes, NSR -troponin 0.05, but chronically elevated. will continue to trend. -monitor telemetry -wells score 0 -heart score 4 -TSH normal 11/11/17 -mag and phos lab ordered -takes ASA 325mg daily at home -BNP 183, but chronically elevated -cath and echo performed 10/2017 -will communicate with cardiology, Dr. Mcgill 2. HTN -continue home [id number]-wpaq, metoprolol, amlodipine -consider adding prn if systolic >180 3. T2DM -last A1c 7.2 -continue home metformin -accuchecks qach -mild sliding scale prn 4. HLD -continue atorvastatin -recent fasting lipids outpatient 10/2017 within normal limits 5. Anxiety/depression -home meds: celebrex, lorazepam 6. Hx of aortic valve replacement Ppx: SCDs, GI ppx not indicated at this time FMR H&P: Upper Level - Plan Date/Time: 11/24/17226 I, Petra Ward MD, PGY-3 have evaluated this patient and agree with findings/ plan as outlined by internal wholesaler resident. Attending Addendum - Attending Addendum Date/Time: 11/24/17 2756 I personally evaluated the patient and discussed the management with Dr. Garcia. I agree with the History, Examination, Assessment and Plan documented above with any addition or exceptions noted below. The patient presented to the hospital following an episode of shortness of breath. The patient has been wearing a holter monitor to look for nonsustained vtach. She states the episode occurred just prior to her removing the monitor. She is back to baseline this morning. No chest pain, palpitations or shortness of breath. Will get holter monitor interrogated and consult cardiology.
[2017-11-24 02:51] VITALS: BMI 26.9
[2017-11-24] MEDS ORDERED: HumaLOG 300 UNITS/3 ML VIAL SC PRN (03:06)
[2017-11-24] MEDS ORDERED: Dextrose 50% Abboject 50 ML SYRINGE IVP PRN (03:14)
[2017-11-24] MEDS ORDERED: Dextrose 5% in Water 1,000 ML IV PRN (03:14)
[2017-11-24 03:45] LABS: Troponin I 0.046 ng/mL (< 0.028)
--- NOTE | 2017-11-24 05:34 | PDOC.FM ---
- Objective Vital Signs & Weight: Vital Signs (12 hours) Temp Pulse Resp BP Pulse Ox 11/24/17 02:58 97.2 F L 58 L 16 11/24/17 02:57 97.2 F L 58 L 16 173/72 H 96 Weight Weight 66.633 kg I&O: 11/22/17 11/23/17 11/24/17 06:59 06:59 06:59 Intake Total 0 Output Total 0 Balance 0 Result Diagrams: 11/24/17 00:04 11/24/17 00:03 Dx/Plan - Plan Plan: 1. SOB -DDX includes arrythmia vs anxiety -hx of non sustained Vtach -OVERNIGHT TELE? -continue to monitor BNP and trop -cath and echo performed 10/2017 -will communicate with cardiology, Dr. Mcgill 2. HTN -continue home dupckrjhcwy-hfablzmzs-rgvc, metoprolol, amlodipine -consider adding prn if systolic >180 3. T2DM -last A1c 7.2 -continue home metformin -accuchecks qach -mild sliding scale prn 4. HLD -continue atorvastatin -recent fasting lipids outpatient 10/2017 within normal limits 5. Anxiety/depression -home meds: celebrex, lorazepam 6. Hx of aortic valve replacement Ppx: SCDs, GI ppx not indicated at this time
[2017-11-24 05:43] LABS: Magnesium 1.9 mg/dL (1.6-2.6); Phosphorus 2.9 mg/dL (2.3-4.7)
[2017-11-24 06:24] LABS: Troponin I 0.062 ng/mL (< 0.028)
[2017-11-24] MEDS ORDERED: Lorazepam 0.5 MG TAB PO PRN (08:02)
[2017-11-24] MEDS ORDERED: diphenhydrAMINE 2% CREAM 28.4 GM TUBE TOP PRN (08:02)
[2017-11-24] MEDS ORDERED: Metoprolol Tartrate 25 MG TAB PO SCH (09:00)
[2017-11-24] MEDS ORDERED: Aspirin 325 mg Enteric Coated Tablet PO SCH (09:00)
[2017-11-24 09:05] LABS: Troponin I 0.058 ng/mL (< 0.028)
--- NOTE | 2017-11-24 09:17 | RAD ---
PA AND LATERAL CHEST RADIOGRAPH: Date: 11-24-17 History: Heart palpitations. Comparison: 10-29-17 FINDINGS: Again noted are post-surgical changes related to median sternotomy and cardiac valve replacement. Car diac silhouette and pulmonary vasculature are within normal limits. Vascular calcifications are again seen in an ectatic thoracic aorta. Lungs are clear. There has been no interval change from the prior exam. IMPRESSION: No acute cardiopulmonary process. POS: TAJ
[2017-11-24] MEDS: Escitalopram Oxalate 10 mg Tablet PO SCH (09:30)
[2017-11-24] MEDS: Magnesium Oxide 400 MG TAB PO SCH ×2 (09:30→20:23)
[2017-11-24] MEDS: Aspirin 325 mg Enteric Coated Tablet PO SCH (09:30)
[2017-11-24] MEDS: Valsartan 80 MG TAB PO SCH (09:31)
[2017-11-24] MEDS: Ferrous Sulfate 325 MG TAB PO SCH (09:32)
[2017-11-24] MEDS: Amlodipine 5 MG TAB PO SCH (09:32)
[2017-11-24] MEDS: metFORMIN 500 MG TAB PO SCH ×2 (18:18→18:20)
[2017-11-24] MEDS: Metoprolol Tartrate 25 MG TAB PO SCH (20:23)
[2017-11-24] MEDS: Atorvastatin Calcium 40 MG TAB PO SCH (20:23)
--- NOTE | 2017-11-24 22:27 | CON ---
DATE OF CONSULT: 11/24/17 HISTORY OF PRESENT ILLNESS: The patient is a 72-year-old woman with a history of aortic valve replac ement who presents with palpitations and dyspnea. The patient underwent aortic valve replacement in 12/2015. At that time, she was found to have mild coronary artery disease. The patient also has a h istory of hypertension and a TIA. She was readmitted with palpitations in early October of this year. She was placed on a Holter monitor. She came back in October several weeks later with palpitations. S he underwent a repeat catheterization and was found to have a normal left ventricular ejection fracti on, 40% LAD lesion, 55%, left circumflex lesion, 50% OM lesion, 50% RCA lesion and an 80% OM lesion. The patient was felt to have noncritical coronary artery disease and continued on medical therapy. The patient has not been noted to have palpitation, dyspnea, and presented to the emergency room for further evaluation. The patient underwent an EP consultation and presents once again with recurrent palpitations. PAST MEDICAL HISTORY: Significant for 1. Aortic valve replacement. 2. Hypertension. 3. History of transient ischemic attack. 4. Nonsustained ventricular tachycardia. 5. Diabetes mellitus. PAST SURGICAL HISTORY: 1. Tubal ligation 2. Cholecystectomy 3. Aortic valve replacement. ALLERGIES: CODEINE.. SOCIAL HISTORY: Former smoker. MEDICATIONS: Aspirin 81 daily, Diovan 160/12.5 daily, metoprolol 25 b.i.d., Lipitor 40 at bedtime, metoprolol 500 b.i.d. and Celebrex 100 b.i.d. REVIEW OF SYSTEMS: Noticeable for increasing stress and anxiety. Ten-point system otherwise unremarkable. PHYSICAL EXAMINATION: GENERAL: This is a well-developed woman in no acute distress. VITAL SIGNS: Blood pressure was 145/64. NECK: No jugular distention. LUNGS: Clear to auscultation. HEART: Regular rate and rhythm, normal S1, S2. II/ murmur. ABDOMEN: Nondistended. EXTREMITIES: Showed trace edema. VASCULAR: Radial pulses are 2+. NEUROLOGIC: Nonfocal. LABORATORY DATA: White blood cell count 7.0, hemoglobin 13.4, hematocrit 40.8, platelets 249. Sodium was 142, potassi um 4.0, chloride 103, bicarbonate 31, BUN 9, creatinine 1.0. Troponin 0.052. Her EKG reveals her to have normal sinus rhythm with poor R-wave progression with a possible previous anteroseptal infarct. IMPRESSION: 1. Palpitations, nonsustained ventricular tachycardia. 2. History of aortic valve replacement. 3. CAD. 4. Hypertension. This patient presents with dyspnea and palpitations. The patient has had recurrent difficulty with n onsustained V-tach. We will obtain an EP consultation. We will increase the dose of her metoprolol. Will follow this patient with you through her hospitalization.
--- NOTE | 2017-11-25 05:54 | PDOC.FM ---
- Subjective Subjective: Pt continues to feel improved, she is eating and sleeping well, and denies any SOB, chest pain, headache, palpitations or other new symptoms. - Objective Vital Signs & Weight: Vital Signs (12 hours) Temp Pulse Resp BP Pulse Ox 11/25/17 04:17 98.0 F 65 24 H 118/55 L 96 11/25/17 00:00 98.5 F 67 20 166/73 H 92 L 11/24/17 20:00 97.3 F L 63 16 149/68 H 98 Weight Weight 66.043 kg I&O: 11/23/17 11/24/17 11/25/17 06:59 06:59 06:59 Intake Total 0 240 Output Total 0 700 Balance 0 -460 Result Diagrams: 11/24/17 00:04 11/24/17 00:03 <Benito Covarrubias - Last Filed: 11/25/17 08:02> - Objective Vital Signs & Weight: Vital Signs (12 hours) Temp Pulse Resp BP Pulse Ox 11/25/17 11:05 97.5 F L 58 L 16 140/67 97 11/25/17 08:00 97.5 F L 58 L 16 I&O: 11/24/17 11/25/17 11/26/17 06:59 06:59 06:59 Intake Total 250 Balance 250 Result Diagrams: 11/24/17 00:04 11/24/17 00:03 <Elissa Naqvi - Last Filed: 11/25/17 16:18> Phys Exam - Physical Examination Constitutional: NAD Respiratory: no wheezing, no rales, no rhonchi, wheezing present, clear to auscultation bilateral Cardiovascular: RRR, no significant murmur, no rub, gallop Gastrointestinal: soft, non-tender, no distention, positive bowel sounds Musculoskeletal: no edema, pulses present Psychiatric: normal affect <Benito Covarrubias - Last Filed: 11/25/17 08:02> Dx/Plan (1) Non-sustained ventricular tachycardia Code(s): I47.2 - VENTRICULAR TACHYCARDIA Status: Acute (2) Atypical chest pain Code(s): R07.89 - OTHER CHEST PAIN Status: Acute (3) Shortness of breath Code(s): R06.02 - SHORTNESS OF BREATH Status: Acute (4) HTN (hypertension) Code(s): I10 - ESSENTIAL (PRIMARY) HYPERTENSION Status: Acute (5) Type 2 diabetes mellitus Status: Acute - Plan Plan: 1. SOB related to nonsustained vtach -troponin 0.05, but chronically elevated. will continue to trend. -monitor telemetry -wells score 0 -heart score 4 -TSH normal 11/11/17 -BNP 183, but chronically elevated -cath and echo performed 10/2017 -Dr. Ricks has been consulted and recommends consulting EP -make inpatient status due to arrhythmia and potential for further workup 2. HTN -continue home wydmzwycexf-bxwsovxso-nsmj, metoprolol, amlodipine -consider adding prn if systolic >180 -Metoprolol has been increased per Dr. Ricks 3. T2DM -last A1c 7.2 -continue home metformin -accuchecks qach -mild sliding scale prn 4. HLD -continue atorvastatin -recent fasting lipids outpatient 10/2017 within normal limits 5. Anxiety/depression -home meds: celebrex, lorazepam 6. Hx of aortic valve replacement Ppx: SCDs, GI ppx not indicated at this time Dispo: pt is stable and continues to improve, make inpatient status and await recommendation from cardiology and EP <Benito Covarrubias - Last Filed: 11/25/17 08:02> (1) Shortness of breath Code(s): R06.02 - SHORTNESS OF BREATH Status: Acute (2) Anxiety Code(s): F41.9 - ANXIETY DISORDER, UNSPECIFIED Status: Acute (3) Elevated troponin Code(s): R74.8 - ABNORMAL LEVELS OF OTHER SERUM ENZYMES Status: Acute (4) HLD (hyperlipidemia) Code(s): E78.5 - HYPERLIPIDEMIA, UNSPECIFIED Status: Acute (5) HTN (hypertension) Code(s): I10 - ESSENTIAL (PRIMARY) HYPERTENSION Status: Acute (6) Osteoarthritis Code(s): M19.90 - UNSPECIFIED OSTEOARTHRITIS, UNSPECIFIED SITE Status: Acute (7) S/P AVR (aortic valve replacement) Code(s): Z95.2 - PRESENCE OF PROSTHETIC HEART VALVE Status: Acute (8) Type 2 diabetes mellitus Status: Acute <Elissa Naqvi - Last Filed: 11/25/17 16:18> Attending Addendum - Attending Addendum Date/Time: 11/25/17 8637 I personally evaluated the patient and discussed the management with Dr. Covarrubias. I agree with the History, Examination, Assessment and Plan documented above with any addition or exceptions noted below. The patient has been seen by Dr. Lowe who has adjusted her beta sea dose. Will continue to monitor on telemetry. <Elissa Naqvi - Last Filed: 11/25/17 16:18>
[2017-11-25] MEDS: Magnesium Oxide 400 MG TAB PO SCH ×2 (09:02→22:03)
[2017-11-25] MEDS: Aspirin 325 mg Enteric Coated Tablet PO SCH (09:02)
[2017-11-25] MEDS: Valsartan 80 MG TAB PO SCH (09:02)
[2017-11-25] MEDS: Escitalopram Oxalate 10 mg Tablet PO SCH (09:02)
[2017-11-25] MEDS: Metoprolol Tartrate 25 MG TAB PO SCH (09:03)
[2017-11-25] MEDS: Ferrous Sulfate 325 MG TAB PO SCH (09:03)
[2017-11-25] MEDS: metFORMIN 500 MG TAB PO SCH ×2 (09:03→16:50)
[2017-11-25] MEDS: Amlodipine 5 MG TAB PO SCH (09:03)
[2017-11-25] MEDS: Enoxaparin Sodium 40 MG/0.4 ML SYRINGE SC SCH (09:07)
--- NOTE | 2017-11-25 13:36 | PRG ---
DATE OF SERVICE: 11/24/2017 I am seeing Ms. Herndon at our [facility] as a followup. This lady returns for ventricular tachycardia on the previous admission on the . She was admitted for heart catheterization and I have seen her prior to that as requested by Dr. Mcgill. The main reason for her heart catheterization is wide complex arrhythmia. She has a longstanding palpitation. She cannot exactly recall the first time and it could have been years, possible even prior to her aortic valve replacement surgery. She never passed out with these. Palpitations are moderate. She has no stroke-like symptoms, no neurological deficits, no fever, chills or cough. She has no angina at this time point. Rest of 12-point system is otherwise unremarkable. PAST HISTORY AND PROBLEMS: 1. History of aortic stenosis and subsequent replacement 03/09. A. A 2D echo from 11/12/2017, revealed LVEF of 55% to 60%, mild concentric LVH , some diastolic dysfunction, mild mitral regurgitation present bifascicular valve, porcine type in adequate position, mild TR, noted. 2. Nonocclusive coronary artery disease. A. Left heart catheterization on 11/12/2017 revealed non occlusive plaquing of the main coronary arteries and small vessel coronary artery diseasewith 80% stenosis in the acute marginal is noted. 3. Risk factor including hypertension, diabetes, hyperlipidemia. 4. History of anxiety and depression. ALLERGIES: CODEINE, NITROGLYCERIN, PENICILLIN. MEDICATIONS AT HOME: Vitamin D3, Lipitor, metoprolol tartrate, lorazepam, amlodipine, diphenhydramine, aspirin, Feosol, magnesium oxide, valsartan, escitalopram, metformin. SUBJECTIVE: Mrs. Herndon is here with palpitations. She is being monitored at the request of Dr. Mcgill. She had recurrent episodes of wide complex tachyarrhythmias, they are nonsustained. She does not pass out with them. Nevertheless, she is fairly anxious about them. She has no stroke-like symptoms or neurological deficits, no fever, chills, cough, no PND or orthopnea. Rest of 12-point system otherwise unremarkable. OBJECTIVE DATA: VITAL SIGNS: Blood pressure is 145/64, heart rate 64, respirations 16, temperature 97.5 degrees Fahrenheit. GENERAL: She is alert and oriented woman in no apparent distress. NECK: Supple. Jugular veins not distended. CHEST: Coarse without crackles. CARDIOVASCULAR: Heart sounds are regular rate and rhythm. No murmur or gallop. ABDOMEN: Benign. Bowel sounds are positive. LOWER EXTREMITIES: Without edema, clubbing or cyanosis. Pulses are adequate. NEUROLOGIC: Patient is nonfocal. MUSCULOSKELETAL: No joint swelling or deformities. SKIN: Without rash. DATABASE: EKGs reviewed revealing an initial sinus rhythm, left atrial enlargement. No signs of infarction is seen. QTCs 389. The subsequent telemetry strips reveals sinus rhythm, rare PVCs. The telemetry strips from her 30-day monitor has been reviewed. She has marked frequency of nonsustained wide complex tachyarrhythmia runs. They are mostly monomorphic although I cannot rule out two separate morphologies also occurring. The rates are up to 150 beats per minute, some most of the episodes correlated to no major symptoms. LABORATORY DATA: White count 7.0, hemoglobin 13.4, platelet count is 249. Troponin I 0.06, 0.058, 0.046 prior to that. Sodium 142, potassium 4.0, BUN is 9, creatinine is 1.0. AST, ALT is 22 and 18. ASSESSMENT AND PLAN: Mrs. Herndon is a pleasant 72-year-old woman with a history of aortic stenosis and aortic valve replacement surgery. She has some palpitations and at times prolonged episodes of ventricular arrhythmias are seen up to 32 beats of wide complex arrhythmia is seen on her monitor. They seemed to be somewhat monomorphic appearing. Separate morphologies cannot be completely ruled out on several recordings. She had recent left heart catheterization demonstrating nonocclusive coronary artery disease only. She has now preserved left ventricular systolic function, some mild LV dysfunction is noted in the past, but that resolved. She has mild LVH only. Her ventricular tachyarrhythmia episodes are minimally symptomatic, but the prognosis is likely to be benign. I suspect some idiopathic ventricular tachycardia as a cause. I would advocate medical management as the primary approach. She is already on beta sea therapy which could be further increased to maximize. Alternative to that verapamil could be considered as well. If that fails low dose flecainide could be added to the regimen, albeit suboptimal hence hsitory of mild CAD. If these efforts fail, ablation procedure is a possibility as well. We will follow up with you. RANDY
[2017-11-25] MEDS: Atorvastatin Calcium 40 MG TAB PO SCH (22:03)
--- NOTE | 2017-11-26 05:49 | PDOC.FM ---
- Subjective Subjective: Pt continues to feel well, no new symptoms overnight. She denies chest pain, numbness or tingling. Reports one episode of shortness of breath overnight. - Objective Vital Signs & Weight: Vital Signs (12 hours) Temp Pulse Resp BP Pulse Ox 11/26/17 04:46 98.4 F 60 20 139/64 93 L 11/26/17 00:00 98 F 72 14 139/63 91 L 11/25/17 19:30 99.1 F 61 18 173/74 H 100 11/25/17 19:25 99.1 F 61 16 100 I&O: 11/24/17 11/25/17 11/26/17 06:59 06:59 06:59 Intake Total 900 Balance 900 Result Diagrams: 11/24/17 00:04 11/24/17 00:03 <Benito Covarrubias - Last Filed: 11/26/17 09:17> - Objective Vital Signs & Weight: Vital Signs (12 hours) Temp Pulse Resp BP Pulse Ox 11/26/17 12:00 98.0 F 60 18 131/63 98 11/26/17 08:00 96.9 F L 58 L 18 168/73 H 93 L Weight Weight 65.771 kg I&O: 11/25/17 11/26/17 11/27/17 06:59 06:59 06:59 Intake Total 900 450 Balance 900 450 Result Diagrams: 11/24/17 00:04 11/24/17 00:03 <Elissa Naqvi - Last Filed: 11/26/17 17:08> Phys Exam - Physical Examination Constitutional: NAD Respiratory: no wheezing, no rales, no rhonchi, clear to auscultation bilateral Cardiovascular: RRR, no significant murmur, no rub Gastrointestinal: soft, non-tender Musculoskeletal: no edema, pulses present Psychiatric: normal affect <Benito Covarrubias - Last Filed: 11/26/17 09:17> Dx/Plan (1) Non-sustained ventricular tachycardia Code(s): I47.2 - VENTRICULAR TACHYCARDIA Status: Acute (2) Atypical chest pain Code(s): R07.89 - OTHER CHEST PAIN Status: Acute (3) Shortness of breath Code(s): R06.02 - SHORTNESS OF BREATH Status: Acute (4) HTN (hypertension) Code(s): I10 - ESSENTIAL (PRIMARY) HYPERTENSION Status: Acute (5) Type 2 diabetes mellitus Status: Acute - Plan Plan: 1. Non-sustained vtach -troponin 0.05, but chronically elevated. will continue to trend. -monitor telemetry: 5 beat run of vtach overnight -TSH normal 11/11/17 -cath and echo performed 10/2017 -Dr. Ricks has been consulted and recommends consulting EP -Dr. Velasquez has increased metoprolol 2. HTN -continue home [id number], metoprolol, amlodipine -consider adding prn if systolic >180 3. T2DM -last A1c 7.2 -continue home metformin -accuchecks qach -mild sliding scale prn 4. HLD -continue atorvastatin -recent fasting lipids outpatient 10/2017 within normal limits 5. Anxiety/depression -home meds: celebrex, lorazepam 6. Hx of aortic valve replacement Ppx: SCDs, GI ppx not indicated at this time Dispo: Pt is feeling well and would like to go home, considering continued arrhythmic episodes will continue to monitor and wait cardiology/EP recs <Benito Covarrubias - Last Filed: 11/26/17 09:17> (1) Shortness of breath Code(s): R06.02 - SHORTNESS OF BREATH Status: Acute (2) Anxiety Code(s): F41.9 - ANXIETY DISORDER, UNSPECIFIED Status: Acute (3) Elevated troponin Code(s): R74.8 - ABNORMAL LEVELS OF OTHER SERUM ENZYMES Status: Acute (4) HLD (hyperlipidemia) Code(s): E78.5 - HYPERLIPIDEMIA, UNSPECIFIED Status: Acute (5) HTN (hypertension) Code(s): I10 - ESSENTIAL (PRIMARY) HYPERTENSION Status: Acute (6) Osteoarthritis Code(s): M19.90 - UNSPECIFIED OSTEOARTHRITIS, UNSPECIFIED SITE Status: Acute (7) S/P AVR (aortic valve replacement) Code(s): Z95.2 - PRESENCE OF PROSTHETIC HEART VALVE Status: Acute (8) Type 2 diabetes mellitus Status: Acute <Elissa Naqvi - Last Filed: 11/26/17 17:08> Attending Addendum - Attending Addendum Date/Time: 11/26/17 5967 I personally evaluated the patient and discussed the management with Dr. Covarrubias. I agree with the History, Examination, Assessment and Plan documented above with any addition or exceptions noted below. The patient had short episodes of vtach overnight. At least one of which she was symptomatic from. Her beta sea has been adjusted. Will continue to monitor. Appreciate cardiology and EP recs. <Elissa Naqvi - Last Filed: 11/26/17 17:08>
[2017-11-26] MEDS: Amlodipine 5 MG TAB PO SCH (09:05)
[2017-11-26] MEDS: metFORMIN 500 MG TAB PO SCH ×2 (09:05→16:40)
[2017-11-26] MEDS: Aspirin 325 mg Enteric Coated Tablet PO SCH (09:05)
[2017-11-26] MEDS: Ferrous Sulfate 325 MG TAB PO SCH (09:05)
[2017-11-26] MEDS: Magnesium Oxide 400 MG TAB PO SCH ×2 (09:05→20:38)
[2017-11-26] MEDS: Valsartan 80 MG TAB PO SCH (09:06)
[2017-11-26] MEDS: Escitalopram Oxalate 10 mg Tablet PO SCH (09:06)
[2017-11-26] MEDS: Enoxaparin Sodium 40 MG/0.4 ML SYRINGE SC SCH (09:07)
--- NOTE | 2017-11-26 19:03 | PRG ---
DATE OF SERVICE: 11/26/2017 ELECTROPHYSIOLOGIC FOLLOWUP NOTE SUBJECTIVE: Ms. Herndon is doing fair. She has minimal dizziness today. Otherwise, tolerating her medication regimen well. OBJECTIVE DATA: VITAL SIGNS: Blood pressure is 138/63, heart rate 64, respiration is 18, temperature 98.2 degrees Fa hrenheit. GENERAL: Alert and oriented woman in no apparent distress. NECK: Supple. Jugular veins not distended. CHEST: Coarse without crackles. CARDIOVASCULAR: Heart sounds are regular to rate and rhythm. No murmur or gallop. ABDOMEN: Benign. Bowel sounds positive. EXTREMITIES: Lower extremity without edema, clubbing or cyanosis. DATABASE: Telemetry strips reviewed revealing a single 5 beat run of slow ventricular tachycardia. ASSESSMENT AND PLAN: Ms. Herndon is a 72-year-old woman with prior history of aortic valve replacem ent. She had palpitations and telemetry strips suggestive of nonsustained VT. She is now being load ed with beta blockers. Since that she is tolerating her medication well, although lower heart rates are seen, but she is not symptomatic with that. Our plan is to maximize beta sea therapy if she tolerates them with her heart rates and blood pre ssure and ventricular tachycardia episodes are subsiding. She likely will continue same dose as an o utpatient. Alternatively, flecainide could be considered. I will see her back as an outpatient.
[2017-11-26] MEDS ORDERED: Sodium Chloride 0.9% 10 ML ONE (20:08)
[2017-11-26] MEDS: Atorvastatin Calcium 40 MG TAB PO SCH (20:38)
[2017-11-27] MEDS ORDERED: Mag-Al 1200 mg/1200 mg/30 ML UDCUP PO PRN (04:25)
--- NOTE | 2017-11-27 06:00 | PDOC.FM ---
- Subjective Subjective: Pt reports feeling well today, she would like to go home. She did not have any episodes of shortness of breath overnight. She denies chest pain, palpitations, or weakness. - Objective Vital Signs & Weight: Vital Signs (12 hours) Temp Pulse Resp BP BP BP Pulse Ox 11/27/17 04:08 98.4 F 57 L 16 140/63 95 11/27/17 00:00 65 16 130/60 93 L 11/26/17 20:38 98.9 F 65 16 92 L 11/26/17 20:33 98.9 F 65 16 145/65 H 92 L Weight Weight 65.771 kg I&O: 11/25/17 11/26/17 11/27/17 06:59 06:59 06:59 Intake Total 900 1758 Output Total 750 Balance 900 1008 Result Diagrams: 11/24/17 00:04 11/24/17 00:03 <Benito Covarrubias - Last Filed: 11/27/17 09:09> - Objective Vital Signs & Weight: Vital Signs (12 hours) Temp Pulse Resp BP BP Pulse Ox 11/27/17 14:07 98.3 F 61 18 135/62 92 L 11/27/17 08:00 98.6 F 55 L 18 121/58 L 92 L Weight Weight 65.771 kg I&O: 11/26/17 11/27/17 11/28/17 06:59 06:59 06:59 Intake Total 900 1758 Output Total 750 Balance 900 1008 Result Diagrams: 11/24/17 00:04 11/24/17 00:03 <Elissa Naqvi - Last Filed: 11/27/17 16:23> Phys Exam - Physical Examination Constitutional: NAD Respiratory: no wheezing, clear to auscultation bilateral Cardiovascular: RRR, no significant murmur, no rub Gastrointestinal: soft, non-tender Musculoskeletal: no edema, pulses present Psychiatric: normal affect <Benito Covarrubias - Last Filed: 11/27/17 09:09> Dx/Plan (1) Non-sustained ventricular tachycardia Code(s): I47.2 - VENTRICULAR TACHYCARDIA Status: Acute (2) Shortness of breath Code(s): R06.02 - SHORTNESS OF BREATH Status: Resolved (3) HTN (hypertension) Code(s): I10 - ESSENTIAL (PRIMARY) HYPERTENSION Status: Acute (4) Type 2 diabetes mellitus Status: Acute - Plan Plan: 1. Non-sustained vtach -monitor telemetry: no runs of vtach overnight -TSH normal 11/11/17 -cath and echo performed 10/2017 -Dr. Ricks has been consulted and recommends consulting EP -Dr. Velasquez has increased metoprolol and will follow up outpatient 2. HTN -continue home [id number], metoprolol, amlodipine -consider adding prn if systolic >180 3. T2DM -last A1c 7.2 -continue home metformin -accuchecks qach -mild sliding scale prn 4. HLD -continue atorvastatin -recent fasting lipids outpatient 10/2017 within normal limits 5. Anxiety/depression -home meds: celebrex, lorazepam 6. Hx of aortic valve replacement Ppx: SCDs, GI ppx not indicated at this time Dispo: Pt is feeling well and would like to go home, considering absence of arrhythmic episodes will discharge today per Dr. Lowe, will direct pt to follow up in clinic <Benito Covarrubias - Last Filed: 11/27/17 09:09> (1) Shortness of breath Code(s): R06.02 - SHORTNESS OF BREATH Status: Resolved (2) Anxiety Code(s): F41.9 - ANXIETY DISORDER, UNSPECIFIED Status: Acute (3) Elevated troponin Code(s): R74.8 - ABNORMAL LEVELS OF OTHER SERUM ENZYMES Status: Acute (4) HLD (hyperlipidemia) Code(s): E78.5 - HYPERLIPIDEMIA, UNSPECIFIED Status: Acute (5) HTN (hypertension) Code(s): I10 - ESSENTIAL (PRIMARY) HYPERTENSION Status: Acute (6) Osteoarthritis Code(s): M19.90 - UNSPECIFIED OSTEOARTHRITIS, UNSPECIFIED SITE Status: Acute (7) S/P AVR (aortic valve replacement) Code(s): Z95.2 - PRESENCE OF PROSTHETIC HEART VALVE Status: Acute (8) Type 2 diabetes mellitus Status: Acute <Elissa Naqvi - Last Filed: 11/27/17 16:23> Attending Addendum - Attending Addendum Date/Time: 11/27/17 [id number] I personally evaluated the patient and discussed the management with Dr. Covarrubias. I agree with the History, Examination, Assessment and Plan documented above with any addition or exceptions noted below. The patient is feeling better. No Vtach overnight. Will d/c home with adjusted metoprolol dose. <Elissa Naqvi - Last Filed: 11/27/17 16:23>
[2017-11-27] MEDS: Escitalopram Oxalate 10 mg Tablet PO SCH (09:12)
[2017-11-27] MEDS: Aspirin 325 mg Enteric Coated Tablet PO SCH (09:12)
[2017-11-27] MEDS: Valsartan 80 MG TAB PO SCH (09:12)
[2017-11-27] MEDS: Magnesium Oxide 400 MG TAB PO SCH (09:12)
[2017-11-27] MEDS: metFORMIN 500 MG TAB PO SCH (09:12)
[2017-11-27] MEDS: Amlodipine 5 MG TAB PO SCH (09:12)
[2017-11-27] MEDS: Ferrous Sulfate 325 MG TAB PO SCH (09:13)
[2017-11-27] MEDS: Enoxaparin Sodium 40 MG/0.4 ML SYRINGE SC SCH (09:13)
[2017-11-27 14:07] VITALS: BP 135/62; TEMP 98.3
--- NOTE | 2017-11-27 17:15 | EKG ---
Test Reason : Blood Pressure : / mmHG Vent. Rate : 053 BPM Atrial Rate : 053 BPM P-R Int : 158 ms QRS Dur : 070 ms QT Int : 414 ms P-R-T Axes : 032 -17 024 degrees QTc Int : 388 ms Sinus bradycardia Moderate voltage criteria for LVH, may be normal variant Nonspecific ST and T wave abnormality Abnormal ECG When compared with ECG of 26-NOV-2017 08:06, No significant change was found Confirmed by DR. Bernadine ROUSSEAU ([id number]) on 11/27/2017 5:15:20 PM Referred By: ARLEN Confirmed By:DR. Bernadine ROUSSEAU
--- NOTE | 2017-11-27 21:37 | DIS-2 ---
DATE OF ADMISSION: 11/24/2017 DATE OF DISCHARGE: 11/27/2017 RESIDENT: Benito Covarrubias DO ADMITTING ATTENDING: Amparo Dior MD DISCHARGE ATTENDING: Elissa Naqvi MD CONSULTATIONS: Dr. Ricks, Cardiology; Dr. Lowe, Electrophysiology. PROCEDURE: Chest x-ray, no acute pulmonary process. PRIMARY DIAGNOSIS: Nonsustained ventricular tachycardia. SECONDARY DIAGNOSES: 1. Hypertension. 2. Type 2 diabetes mellitus. 3. Hyperlipidemia. 4. Anxiety/depression. 5. History of aortic valve replacement. DISCHARGE MEDICATIONS: 1. Vitamin D3, 1000 unit capsule p.o. daily. 2. Atorvastatin 40 mg tab p.o. at bedtime. 3. Lorazepam 0.5 mg tab p.o. b.i.d. p.r.n. 4. Banophen anti-itch 2% cream, 28 gram tube, 1 application topical p.r.n. 5. Amlodipine 5 mg tab p.o. daily. 6. Aspirin 325 mg p.o. daily. 7. Ferrous sulfate 325 mg tab p.o. daily. 8. Valsartan 80 mg tab p.o. daily. 9. Magnesium oxide 400 mg tab p.o. b.i.d. 10. Metformin 500 mg tab p.o. b.i.d. with meals. 11. Lexapro 10 mg tab p.o. daily. 12. Toprol-XL 100 mg tab p.o. b.i.d. DISCONTINUED MEDICATIONS: Metoprolol tartrate 25 mg p.o. b.i.d. HOSPITAL COURSE: Ms. Herndon presented with shortness of breath. She reported that this happens fr equently ever since she had had her aortic valve replaced. Symptoms were worse the evening she prese nted to the ER. She said that she was sitting on the couch and she felt like she was "trying to come out of water." She denies chest pain, dyspnea on exertion, diaphoresis, fevers, chills, or cough. The patient follows with Dr. Mcgill, Cardiology, outpatient and she had been wearing her Holter mo nitor during the events in the hospital. We looked at the records of the Holter monitor at that time and appreciated 5 beats of nonsustained V-tach. Cardiology was consulted. Dr. Ricks recommended an EP consult. Dr. Lowe, the welder tack, was brought onto the case. He recommended medica tion changes to improve symptoms and reduce chance of mortality. He will follow up with her outpatie nt. Troponins were trended throughout. Chest x-ray was without abnormal findings. Basic labs showed no abnormal findings as well. She is f eeling much better today and has not had any episodes of sustained or nonsustained ventricular tachyc ardia overnight. DISPOSITION: Stable. DISCHARGE INSTRUCTIONS: 1. Location: Home. 2. Diet: Diabetic. 3. Activity: As tolerated. 4. Followup: She needs to follow up with her PCP, Dr. Arellano, in 7 days; follow up with the electroph ysiologist, Dr. Lowe, in 7 days; and follow up as she is already scheduled with Dr. Mcgill on 11/22.
--- NOTE | 2017-11-28 13:09 | EKG ---
Test Reason : PALPITATION Blood Pressure : / mmHG Vent. Rate : 064 BPM Atrial Rate : 064 BPM P-R Int : 154 ms QRS Dur : 066 ms QT Int : 378 ms P-R-T Axes : 057 -08 055 degrees QTc Int : 389 ms Normal sinus rhythm Possible Left atrial enlargement Septal infarct , age undetermined Abnormal ECG Confirmed by CECELIA GARCIA ([id number]), production editor ZANDER MORE ([id number]) on 11/28/2017 1:09:42 PM Referred By: Confirmed By:CECELIA GARCIA
== END 2017-11-27 15:55 | disposition home or self-care (01) | DRG 310 ==
LOC: ERS 23:47 → 2SW 11-24 01:05 → OBSVTOIN 11-25 07:53 → 2NO 11-25 12:51
PROVIDERS: ADMIT Family Medicine; ATTEND Family Medicine
DX: I47.2 Ventricular tachycardia (principal); Z79.01 Long term (current) use of anticoagulants; Z95.2 Presence of prosthetic heart valve; Z87.891 Personal history of nicotine dependence; F41.9 Anxiety disorder, unspecified; E78.5 Hyperlipidemia, unspecified; M19.90 Unspecified osteoarthritis, unspecified site; E11.9 Type 2 diabetes mellitus without complications; Z79.82 Long term (current) use of aspirin; Z79.84 Long term (current) use of oral hypoglycemic drugs; F32.9 Major depressive disorder, single episode, unspecified; I25.10 Atherosclerotic heart disease of native coronary artery without angina pectoris; I34.0 Nonrheumatic mitral (valve) insufficiency; I10 Essential (primary) hypertension; Z88.5 Allergy status to narcotic agent; Z88.0 Allergy status to penicillin; Z88.8 Allergy status to other drugs, medicaments and biological substances; Z86.73 Personal history of transient ischemic attack (TIA), and cerebral infarction without residual deficits
CPT/HCPCS: 36415; 36416; 71046; 80053; 82553; 83735; 83880; 84100; 84484; 85025; 93005; 93010; A4216; J1650

== ENCOUNTER 2018-11-19 22:06 | Inpatient (IN) | payer MEDICARE ==
[2018-11-19 22:36] LABS: #Basophils 0.1 thou/uL (0.0-0.2); #Eosinphils 0.3 thou/uL (0.0-0.7); #Lymphocytes 4.6 thou/uL (1.20-3.40); #Monocytes 0.7 thou/uL (0.11-0.59); #Neutrophils 3.6 thou/uL (1.40-6.50); %Basophils 0.7 % (0.0-1.0); %Eosinophils 2.8 % (0.0-10.0); %Lymphocytes 49.5 % (21.0-51.0); %Monocytes 7.9 % (0.0-10.0); %Neutrophils 39.1 % (42.0-75.0); Hemoglobin 13.6 g/dL (12.0-16.0); Mean Corpuscular Hemoglobin 27.9 pg (27.0-31.0); Mean Corpuscular Volume 84.4 fL (78.0-98.0); Mean Platelet Volume 8.2 fL (7.4-10.4); Platelet Count 227 thou/uL (130-400); RBC Distribution Width 11.9 % (11.5-14.5); Red Blood Cell (RBC) Count 4.88 mill/uL (4.20-5.40); White Blood Cell (WBC) Count 9.3 thou/uL (4.8-10.8)
[2018-11-19 22:56] LABS: ALT (SGPT) 21 U/L (8-55); AST (SGOT) 21 U/L (5-34); Albumin 4.2 g/dL (3.4-4.8); Alkaline Phosphatase 119 U/L (40-150); Anion Gap 12 mmol/L (10-20); BUN (Urea Nitrogen) 14 mg/dL (9.8-20.1); Bilirubin, Total 0.5 mg/dL (0.2-1.2); Calc. Creatinine Clearance 0 mL/min (70-130); Calcium 10.4 mg/dL (7.8-10.44); Carbon Dioxide 29 mmol/L (23-31); Chloride 102 mmol/L (98-107); Estimated GFR-MDRD 67; Globulin 3.6 g/dL (2.4-3.5); Glucose 94 mg/dL (83-110); Potassium 3.8 mmol/L (3.5-5.1); Protein, Total 7.8 g/dL (6.0-8.3); Sodium 139 mmol/L (136-145)
[2018-11-19 23:16] LABS: CKMB 1.8 ng/mL (0-6.6)
[2018-11-19 23:20] LABS: Bilirubin Negative (Negative); Blood, Urine Negative (Negative); Clarity CLEAR (Clear); Glucose, Urine (Dipstick) Negative (Negative); Leukocyte Small (Negative); Nitrite Negative (Negative); Protein, Urine (Dipstick) Negative (Neg-Trace)
[2018-11-19 23:21] LABS: Bacteria/HPF None Seen HPF (None Seen); Hyaline Casts/LPF 0-3 HYALINE CAST LPF (0-3 Hyaline); Pathc Cast-AUWi Flag 0.95 (0-2.49); RBC/HPF 0-3 HPF (0-3); Squamous Epithelial 0-3 HPF (0-3); WBC/HPF 0-3 HPF (0-3)
--- NOTE | 2018-11-19 23:27 | RAD ---
EXAM: Chest 2 views: HISTORY: Shortness of breath COMPARISON: 11/24/2017 FINDINGS: Postop midline sternotomy. Heart size:Within normal limits. Lungs:Clear of acute process. Atherosclerotic changes of the aorta. No confluent pneumonia, overt edema, pleural effusion, pneumothorax, or other significant acute proce ss. IMPRESSION: Atherosclerosis of the aorta. No acute intrathoracic disease.
--- NOTE | 2018-11-20 01:23 | PDOC.FPRHP ---
- History of Present Illness Chief Complaint: palpitations History of Present Illness: 74 yo F with history of non sustained vtach, HTN, DM2, presents to ER for palpitations. Had aortic valve replacement in 2016 and since then has had daily palpitations. Hospitalized one year ago for this and at the time was seen by cards and EP. Started on metoprolol and recommended outpatient cardiac ablation. However, patient declined at the time and opted for medical management. She typically experiences brief daily palpitations however, last night she had an episode that was more intense and lasted longer. Came to ED for this where she had another episode. Pt denies lightheadedness, dizziness or other sxs during these episodes. Reports compliance with daily meds. Recently saw Dr. Mcgill 3 weeks ago who started her on telmisartan. Does report some chest pain she's had since surgery at scar/keloid area, this pain has not worsened. No SOB, or LE swelling. ED Course: ASA - Allergies/Adverse Reactions Allergies Allergy/AdvReac Type Severity Reaction Status Date / Time codeine Allergy Verified 11/24/17 02:46 nitroglycerin Allergy Rash Verified 11/24/17 02:46 Penicillins Allergy Verified 11/24/17 02:46 - Home Medications Medication Instructions Recorded Confirmed Type Cholecalciferol (Vitamin D3) 1,000 unit PO DAILY 02/20/16 11/20/18 History [Vitamin D3] Atorvastatin Calcium 40 mg PO HS #30 tablet 03/24/16 11/20/18 Rx Lorazepam [Ativan] 0.5 mg PO BID PRN 10/29/17 11/20/18 History amLODIPine Besylate [Norvasc] 5 mg PO DAILY 10/30/17 11/20/18 History Ferrous Sulfate [Feosol] 325 mg PO DAILY tab 11/12/17 11/20/18 Rx metFORMIN [Glucophage] 500 mg PO BID-WM 11/24/17 11/20/18 History Metoprolol Succinate [Toprol XL] 100 mg PO BID #60 tab 11/27/17 11/20/18 Rx Aspirin [Ecotrin Regular Strength] 81 mg PO DAILY 11/20/18 11/20/18 History Telmisartan 80 mg PO DAILY 11/20/18 11/20/18 History - History PMHx: CAD, s/p repair, palpitations, HTN, HLD, hepatic steatosis, OA, CKD2, TIA PSHx: Aortic valve repair 2016, cath with no stents in 2016 per patient, tubal ligation FHx: heart disease in mother and father Social: 60 pack-year smoking history, quit in 2004, no alcohol or drugs - Review of Systems General: denies: weight/appetite/sleep changes Eyes: denies: eye pain, vision changes ENT: denies: nasal congestion, rhinorrhea Respiratory: denies: cough, congestion, shortness of breath Cardiovascular: reports: chest pain, palpitation. denies: edema, orthopnea Gastrointestinal: denies: nausea, vomiting, diarrhea, constipation, GI bleeding Genitourinary: denies: dysuria Skin: denies: rashes, lesions Musculoskeletal: reports: tenderness. denies: pain, stiffness Neurological: denies: syncope, seizure, weakness - Vital signs BP: [174/72] HR: [55] RR: [55] Tmax: 97.7[] Pox: [98]% on [RA] Wt: [64kg] - Physical Exam Constitutional: NAD, awake, alert and oriented HEENT: normocephalic and atraumatic, PERRLA, EOMI, grossly normal vision Neck: supple, trachea midline -Chest: midline sternotomy scar/keloid Heart: normal S1/S2 -Heart: bradycardic systolic click Lungs: CTAB, no respiratory distress, good air movement Abdomen: soft Musculoskeletal: normal structure, normal tone Neurological: no focal deficit, CN II-XII intact Skin: good turgor, capillary refill <2 seconds Psychiatric: normal mood and affect, good judgment and insight FMR H&P: Results - Labs Result Diagrams: 11/19/18 22:24 11/19/18 22:24 Lab results: WBC 9.3 thou/uL (4.8-10.8) 11/19/18 22:24 Hgb 13.6 g/dL (12.0-16.0) 11/19/18 22:24 Hct 41.2 % (36.0-47.0) 11/19/18 22:24 MCV 84.4 fL (78.0-98.0) 11/19/18 22:24 Plt Count 227 thou/uL (130-400) 11/19/18 22:24 Neutrophils % 39.1 % (42.0-75.0) L 11/19/18 22:24 Sodium 139 mmol/L (136-145) 11/19/18 22:24 Potassium 3.8 mmol/L (3.5-5.1) 11/19/18 22:24 Chloride 102 mmol/L (98-107) 11/19/18 22:24 Carbon Dioxide 29 mmol/L (23-31) 11/19/18 22:24 BUN 14 mg/dL (9.8-20.1) 11/19/18 22:24 Creatinine 0.98 mg/dL (0.6-1.1) 11/19/18 22:24 Glucose 94 mg/dL (83-110) 11/19/18 22:24 Calcium 10.4 mg/dL (7.8-10.44) 11/19/18 22:24 Total Bilirubin 0.5 mg/dL (0.2-1.2) 11/19/18 22:24 AST 21 U/L (5-34) 11/19/18 22:24 ALT 21 U/L (8-55) 11/19/18 22:24 Alkaline Phosphatase 119 U/L (40-150) 11/19/18 22:24 CK-MB (CK-2) 1.8 ng/mL (0-6.6) 11/19/18 22:24 Serum Total Protein 7.8 g/dL (6.0-8.3) 11/19/18 22:24 Albumin 4.2 g/dL (3.4-4.8) 11/19/18 22:24 Urine Ketones Negative mg/dL (Negative) 11/19/18 23:07 Urine Blood Negative (Negative) 11/19/18 23:07 Urine Nitrite Negative (Negative) 11/19/18 23:07 Ur Leukocyte Esterase Small (Negative) H 11/19/18 23:07 Urine RBC 0-3 HPF (0-3) 11/19/18 23:07 Urine WBC 0-3 HPF (0-3) 11/19/18 23:07 Ur Squamous Epith Cells 0-3 HPF (0-3) 11/19/18 23:07 Urine Bacteria None Seen HPF (None Seen) 11/19/18 23:07 - EKG Interpretation EKG: sinus bradycardia LVH - Radiology Interpretation Chest x-ray Status: report reviewed by me Additional comment: atherosclerosis of aorta FMR H&P: A/P - Problem List (1) Anxiety Current Visit: No Status: Acute Code(s): F41.9 - ANXIETY DISORDER, UNSPECIFIED (2) Atypical chest pain Current Visit: No Status: Acute Code(s): R07.89 - OTHER CHEST PAIN (3) CKD (chronic kidney disease) stage 2, GFR 60-89 ml/min Current Visit: No Status: Acute Code(s): N18.2 - CHRONIC KIDNEY DISEASE, STAGE 2 (MILD) (4) Elevated troponin Current Visit: No Status: Acute Code(s): R74.8 - ABNORMAL LEVELS OF OTHER SERUM ENZYMES (5) HLD (hyperlipidemia) Current Visit: No Status: Acute Code(s): E78.5 - HYPERLIPIDEMIA, UNSPECIFIED (6) HTN (hypertension) Current Visit: No Status: Acute Code(s): I10 - ESSENTIAL (PRIMARY) HYPERTENSION (7) Non-sustained ventricular tachycardia Current Visit: No Status: Acute Code(s): I47.2 - VENTRICULAR TACHYCARDIA (8) Osteoarthritis Current Visit: No Status: Acute Code(s): M19.90 - UNSPECIFIED OSTEOARTHRITIS , UNSPECIFIED SITE (9) S/P AVR (aortic valve replacement) Current Visit: No Status: Acute Code(s): Z95.2 - PRESENCE OF PROSTHETIC HEART VALVE - Plan #Palpitations with hx of nonsustained ventricular tachycardia -not captured on EKG or monitor in ER -admit to tele/obs for continued monitoring -consider cards consult in AM -continue home metoprolol #Elevated troponins -.030, usually .04-.15 at baseline -likely demand from palpitations -EKG with sinus bradycardia #Elevated BNP -223, baseline <200s -last echo 2018 showing diastolic dysfx, will obtain another echo #CKD2 -renal function at baseline #DM2 -home metformin -sliding scale #cHTN -home meds #Anxiety -home meds #HLD -home meds dvt ppx: lovenox gi ppx: not indicated PCP: dispo: <2 midnights code: full Will discuss w/ Dr. Gómez FMR H&P: Upper Level - Pertinent history 73 y/o F presents with palpitations. She has chronically had this issue and about a year ago there was discussion by Dr. Lowe of doing an ablation, but the patient declined at the time. She had an aortic valve repair in 2016 and reports this problem started after that. She reports some chest pain near her keloid scar whenever she moves in certain positions. Denies any chest pain on exertion, SOB, lightheadedness, dizziness, nausea. She reports that yesterday she had a more intense episode of palpitations and then another one while sitting in the waiting room, but reports she gets them every day, but they are usually not this "intense." - Pertinent findings Vitals: BP 166/73 HR 60 RR 17 Temp 98.2 O2 sat 100% on RA PE: gen - alert, oriented, NAD HEENT - MMM CV - RRR, 2/6 systolic murmur Resp - CTAB, no wheezes Ext - no edema Abd - soft, NTTP Labs - trop 0.03 CXR - no acute intrathoracic disease - Plan Date/Time: 11/20/18 0123 I, Marjan Bundy MD, have evaluated this patient and agree with findings/plan as outlined by education intern resident. Pertinent changes/additions are listed here. 1. Palpitations Thus far pt in normal sinus rhythm with few PVC's on monitor. Pt has h/o this and has been recommended for her to have ablation due to non-sustained VT. -Will obs on tele -Trend trops -Repeat EKG for any changes -Aspirin -Consider cardiology consult 2. Elevated troponin Pt trop is better than her usual baseline in the indeterminate range -Will trend and monitor -Repeat EKG for any new chest pain Chronic medical conditions per education intern note Dispo: obs on tele VTE ppx: lovenox Code status: full
[2018-11-20] MEDS ORDERED: Aspirin Chewable 81 MG TAB ONE (01:28)
[2018-11-20 02:27] LABS: Troponin I 0.046 ng/mL (< 0.028)
[2018-11-20] MEDS ORDERED: Ondansetron PF 4 MG/2 ML Vial IVP PRN (02:31)
[2018-11-20] MEDS ORDERED: Ondansetron ODT 4 MG TAB SL PRN (02:31)
[2018-11-20] MEDS ORDERED: Sodium Chloride 0.9% 1,000 ML IV SCH (02:31)
[2018-11-20 02:36] VITALS: BMI 25.9
[2018-11-20] MEDS ORDERED: Lorazepam 0.5 MG TAB PO PRN (03:50)
[2018-11-20 05:15] LABS: Band 1 % (5-11); Hemoglobin 13.1 g/dL (12.0-16.0); Lymphocytes 41 % (21-51); MDiff Complete? YES; Mean Corpuscular HGB CONC 32.8 g/dL (32.0-36.0); Mean Corpuscular Hemoglobin 27.9 pg (27.0-31.0); Mean Corpuscular Volume 85.1 fL (78.0-98.0); Mean Platelet Volume 8.2 fL (7.4-10.4); Monocytes 11 % (0-10); Neutrophil 44 % (42-75); Platelet Count 215 thou/uL (130-400); Platelet Morphology Comment Appears Adequate; RBC Morphology Normal; Reactive Lymphocytes 3 % (0-10); White Blood Cell (WBC) Count 7.6 thou/uL (4.8-10.8)
[2018-11-20 05:18] LABS: Anion Gap 13 mmol/L (10-20); BUN (Urea Nitrogen) 14 mg/dL (9.8-20.1); Calc. Creatinine Clearance 60 mL/min (70-130); Carbon Dioxide 31 mmol/L (23-31); Cardiac Risk 2.9 (Less than 4.5); Chloride 102 mmol/L (98-107); Cholesterol 133 mg/dl (< 200 Desired); Estimated GFR-MDRD 79; Glucose 103 mg/dL (83-110); HDL Cholesterol 46 mg/dL (>60 Neg Risk); LDL Cholesterol, Calculated 52 mg/dL; Potassium 4.1 mmol/L (3.5-5.1); Sodium 142 mmol/L (136-145); Triglycerides 176 mg/dL (Less than 150)
[2018-11-20 05:20] LABS: Troponin I 0.041 ng/mL (< 0.028)
[2018-11-20 06:16] LABS: Phosphorus 4.3 mg/dL (2.3-4.7)
[2018-11-20] MEDS: metFORMIN 500 MG TAB PO SCH ×2 (08:15→17:34)
[2018-11-20] MEDS: Ferrous Sulfate 325 MG TAB PO SCH (08:16)
[2018-11-20] MEDS: Amlodipine 5 MG TAB PO SCH (08:17)
[2018-11-20] MEDS: Enoxaparin Sodium 40 MG/0.4 ML SYRINGE SC SCH (08:17)
[2018-11-20] MEDS: Aspirin 81 mg Enteric Coated Tablet PO SCH (08:17)
[2018-11-20] MEDS ORDERED: Aspirin Chewable 81 MG TAB PO SCH (09:00)
--- NOTE | 2018-11-20 15:58 | CON ---
DATE OF CONSULTATION: 11/20/2018 REASON FOR CONSULTATION: Palpitations and presyncope. PRIMARY METHODS STUDY ANALYST: Fransisco Mcgill MD. HISTORY OF PRESENT ILLNESS: Ms. Herndon is a very pleasant 73-year-old female, who comes to the hospital for presyncopal episode. She had aortic valve replacement in 2016 and since her replacement, she has been having episodes of palpitations. Dr. Mcgill did a monitoring about a year ago and found episodes of nonsustained VT. She was brought back and the heart catheterization was done. She was found to have stable oyer-[id number]-bafohwht coronary artery disease. Dr. Lowe was involved for consideration of ablation. Ms. Herndon declined an ablation and took only medical therapy for that. She has been on a beta sea ever since. Ms. Herndon states that she has noted these palpitations almost on a daily basis now and she has just gotten used to them. Yesterday, these palpitations got significantly worse. She felt it was much longer than normal. She felt very lightheaded and was felt if she was close to passing out, she felt she was dying. It stopped within about 10 seconds of it starting and it happened again later that night, so she decided to come in for further evaluation and care. She has been on telemetry monitoring and has not had any other issues since then. PAST MEDICAL HISTORY: 1. Hypertension. 2. Hyperlipidemia. 3. Osteoarthritis. 4. Nonsustained wide-complex tachycardia. 5. Aortic stenosis status post aortic valve replacement, bioprosthetic in 2016. 6. Moderate coronary artery disease. 7. History of TIAs in the past. PAST SURGICAL HISTORY: AVR with bioprosthetic valve. SOCIAL HISTORY: No alcohol, tobacco, or drugs. FAMILY HISTORY: Noncontributory. MEDICATIONS: Outpatient medications; 1. Telmisartan 80 mg a day. 2. Metformin 500 mg b.i.d. 3. Amlodipine 5 mg a day. 4. Lorazepam. 5. Vitamin D3. 6. Toprol-XL 100 mg b.i.d. 7. Ferrous sulfate. 8. Atorvastatin 40 mg at bedtime. 9. Aspirin 81 a day. ALLERGIES: 1. CODEINE. 2. NITROGLYCERIN GIVES RASH. 3. PENICILLINS. REVIEW OF SYSTEMS: A 12-point review of systems was done and was all negative unless stated in the history of present illness. PHYSICAL EXAMINATION: VITAL SIGNS: Temperature 98.0, pulse 61, respiratory rate 18, sat 96% on room air, and blood pressure 142/61. GENERAL: Awake, alert, and oriented x3, in no distress. HEENT: Normocephalic and atraumatic. NECK: Supple. LUNGS: Clear. CARDIOVASCULAR: S1 and S2. No S3 or S4. No murmur. There is a grade 2/6 systolic murmur at the right upper sternal border. ABDOMEN: Soft. Positive bowel sounds. EXTREMITIES: No edema. SKIN: Warm and dry. LABORATORY DATA: Laboratory work was reviewed. CBC is unremarkable. Chemistry is unremarkable. Troponin is in the indeterminate range at 0.03, 0.04, 0.04. Triglycerides of 176, cholesterol 133, LDL of 52, HDL of 46. UA was unremarkable. ASSESSMENT/PLAN: 1. Presyncope. 2. History of nonsustained VT. 3. History of bioprosthetic aortic valve replacement secondary to aortic stenosis. PLAN: 1. Unlikely this is an acute coronary syndrome. 2. We will repeat an echocardiogram to make sure that her LV function remains normal. 3. Most likely, this was a more sustained episode of her ventricular tachycardia. We will continue max dose metoprolol and we will consult Electrophysiology. She states that she is now willing to have an ablation if this was needed. Thank you for letting me to participate in the care of your patient. We will follow. Job ID: [id number]
[2018-11-20] MEDS: Atorvastatin Calcium 40 MG TAB PO SCH (20:20)
[2018-11-21 06:07] LABS: Anion Gap 14 mmol/L (10-20); BUN (Urea Nitrogen) 16 mg/dL (9.8-20.1); Calc. Creatinine Clearance 56 mL/min (70-130); Calcium 9.1 mg/dL (7.8-10.44); Carbon Dioxide 28 mmol/L (23-31); Chloride 101 mmol/L (98-107); Estimated GFR-MDRD 75; Glucose 109 mg/dL (83-110); Potassium 3.9 mmol/L (3.5-5.1); Sodium 139 mmol/L (136-145)
[2018-11-21 06:20] LABS: Band 2 % (5-11); Eosinophils 4 % (0-10); Hemoglobin 13.3 g/dL (12.0-16.0); Lymphocytes 43 % (21-51); MDiff Complete? YES; Mean Corpuscular HGB CONC 32.5 g/dL (32.0-36.0); Mean Corpuscular Hemoglobin 27.9 pg (27.0-31.0); Mean Corpuscular Volume 85.6 fL (78.0-98.0); Mean Platelet Volume 8.5 fL (7.4-10.4); Monocytes 5 % (0-10); Neutrophil 44 % (42-75); Platelet Count 225 thou/uL (130-400); Platelet Morphology Comment Appears Adequate; RBC Distribution Width 12.1 % (11.5-14.5); RBC Morphology Normal; Reactive Lymphocytes 2 % (0-10); Red Blood Cell (RBC) Count 4.77 mill/uL (4.20-5.40); White Blood Cell (WBC) Count 6.9 thou/uL (4.8-10.8)
--- NOTE | 2018-11-21 06:44 | PDOC.FM ---
- Subjective Subjective: NAEO. Patient resting comfortably in bed. No complaints or concerns. Denies any episodes of palpitations. - Objective MAR Reviewed: Yes Vital Signs & Weight: Vital Signs (12 hours) Temp Pulse Resp BP Pulse Ox 11/21/18 04:20 98.2 F 61 16 142/64 H 93 L 11/20/18 23:07 97.7 F 75 20 136/67 93 L 11/20/18 19:21 98.2 F 59 L 20 128/60 93 L Weight Admit Weight 64.229 kg Weight 62.913 kg I&O: 11/19/18 11/20/18 11/21/18 06:59 06:59 06:59 Intake Total 1170 Output Total 450 Balance 720 Result Diagrams: 11/21/18 04:13 11/21/18 04:13 Phys Exam - Physical Examination Constitutional: NAD HEENT: PERRLA, moist MMs Neck: supple, full ROM Respiratory: clear to auscultation bilateral Cardiovascular: RRR Gastrointestinal: soft, non-tender Musculoskeletal: no edema, pulses present Neurological: non-focal, moves all 4 limbs Psychiatric: normal affect, A&O x 3 Skin: no rash, normal turgor, cap refill <2 seconds Dx/Plan (1) CKD (chronic kidney disease) stage 2, GFR 60-89 ml/min Code(s): N18.2 - CHRONIC KIDNEY DISEASE, STAGE 2 (MILD) Status: Acute (2) HLD (hyperlipidemia) Code(s): E78.5 - HYPERLIPIDEMIA, UNSPECIFIED Status: Acute (3) HTN (hypertension) Code(s): I10 - ESSENTIAL (PRIMARY) HYPERTENSION Status: Acute (4) Heart palpitations Code(s): R00.2 - PALPITATIONS Status: Acute (5) S/P AVR (aortic valve replacement) Code(s): Z95.2 - PRESENCE OF PROSTHETIC HEART VALVE Status: Acute (6) Type 2 diabetes mellitus Status: Acute - Plan Plan: Palpitations with hx of nonsustained ventricular tachycardia No abnormal rate/rhythm captured on our monitors. Hx of vtach. - Cardiology consulted, appreciate recommendations. EP consulted for possible ablation. Patient is now willing to get ablation performed if necessary. - Continue home metoprolol Elevated troponins likely demand from palpitations - 0.030, downtrended - EKG with sinus bradycardia Elevated BNP - 223, baseline <200s - Last echo 2018 showing diastolic dysfx, will obtain new echo to further evaluate CKD2 - Renal function at baseline DM2 - Home metformin - Sliding scale cHTN - Home meds Anxiety - Home meds HLD - On lipitor 40mg daily dvt ppx: lovenox gi ppx: not indicated PCP: dispo: pending clinical course code: full
[2018-11-21] MEDS: Amlodipine 5 MG TAB PO SCH (09:20)
[2018-11-21] MEDS: Aspirin 81 mg Enteric Coated Tablet PO SCH (09:20)
[2018-11-21] MEDS: metFORMIN 500 MG TAB PO SCH ×2 (09:20→18:15)
[2018-11-21] MEDS: Ferrous Sulfate 325 MG TAB PO SCH (09:20)
[2018-11-21] MEDS: Enoxaparin Sodium 40 MG/0.4 ML SYRINGE SC SCH (09:21)
--- NOTE | 2018-11-21 13:10 | PDOC.CTH ---
Cardiology Progress Note - Subjective No new issues. She has not had any more episodes of palpitations or presyncope. - Objective Vital Signs Temp Pulse Resp BP Pulse Ox 11/21/18 11:35 97.9 F 60 16 132/58 L 96 11/21/18 07:38 98.1 F 74 18 133/64 94 L 11/21/18 04:20 98.2 F 61 16 142/64 H 93 L Admit Weight 141 lb 9.6 oz Weight 138 lb 11.2 oz 11/20/18 11/21/18 11/22/18 06:59 06:59 06:59 Intake Total 1170 240 Output Total 450 Balance 720 240 - Physical Examination General/Neuro: alert & oriented x3, NAD Neck: no JVD present Lungs: CTA, unlabored respirations Heart: RRR Abdomen: NT/ND Extremities: other: (no edema) - Telemetry Telemetry Rhythm: NSR - Labs Result Diagrams: 11/21/18 04:13 11/21/18 04:13 Troponin/CKMB CK-MB (CK-2) 1.8 ng/mL (0-6.6) 11/19/18 22:24 Troponin I 0.041 ng/mL (< 0.028) H 11/20/18 04:24 - Assessment/Plan 1. Palpitations, presyncope. 2. Hx of non sustained VT 3. S/P bioprosthetic AVR PLAN: - AVR normal functioning on echo yesterday - EP consultation tomorrow.
[2018-11-21] MEDS: Atorvastatin Calcium 40 MG TAB PO SCH (20:10)
[2018-11-22 05:26] LABS: Anion Gap 13 mmol/L (10-20); BUN (Urea Nitrogen) 11 mg/dL (9.8-20.1); Calc. Creatinine Clearance 59 mL/min (70-130); Calcium 9.6 mg/dL (7.8-10.44); Carbon Dioxide 25 mmol/L (23-31); Estimated GFR-MDRD 79; Glucose 114 mg/dL (83-110); Potassium 4.1 mmol/L (3.5-5.1)
[2018-11-22 05:27] LABS: Hemoglobin 13.2 g/dL (12.0-16.0); Lymphocytes 23 % (21-51); MDiff Complete? YES; Mean Corpuscular HGB CONC 32.5 g/dL (32.0-36.0); Mean Corpuscular Hemoglobin 27.8 pg (27.0-31.0); Mean Corpuscular Volume 85.7 fL (78.0-98.0); Mean Platelet Volume 8.3 fL (7.4-10.4); Monocytes 2 % (0-10); Neutrophil 74 % (42-75); Platelet Count 192 thou/uL (130-400); Platelet Morphology Comment Appears Adequate; RBC Morphology Normal; Reactive Lymphocytes 1 % (0-10); Red Blood Cell (RBC) Count 4.74 mill/uL (4.20-5.40); White Blood Cell (WBC) Count 6.7 thou/uL (4.8-10.8)
[2018-11-22 05:32] LABS: Chloride 104 mmol/L (98-107); Sodium 138 mmol/L (136-145)
--- NOTE | 2018-11-22 06:57 | PDOC.FM ---
- Subjective Subjective: Mrs. Herndon is doing well today w/o any complaints. She denied palpitations, chest pain, SOB, LE edema, RUQ pain. - Objective Vital Signs & Weight: Vital Signs (12 hours) Temp Pulse Resp BP BP Pulse Ox 11/22/18 04:45 98.3 F 62 16 136/64 95 11/21/18 23:22 98.5 F 70 12 127/58 L 93 L 11/21/18 19:25 98.2 F 58 L 20 173/72 H 94 L Weight Admit Weight 64.229 kg Weight 62.913 kg I&O: 11/20/18 11/21/18 11/22/18 06:59 06:59 06:59 Intake Total 1170 1200 Output Total 450 900 Balance 720 300 Result Diagrams: 11/22/18 04:43 11/22/18 04:43 Phys Exam - Physical Examination Constitutional: NAD HEENT: PERRLA Respiratory: no wheezing, no rhonchi, clear to auscultation bilateral Cardiovascular: RRR, no significant murmur Gastrointestinal: soft, non-tender, no distention Musculoskeletal: no edema, pulses present Neurological: moves all 4 limbs Psychiatric: A&O x 3 Skin: no rash Dx/Plan (1) Heart palpitations Code(s): R00.2 - PALPITATIONS Status: Acute (2) (HFpEF) heart failure with preserved ejection fraction Code(s): I50.30 - UNSPECIFIED DIASTOLIC (CONGESTIVE) HEART FAILURE Status: Acute (3) Elevated troponin Code(s): R74.8 - ABNORMAL LEVELS OF OTHER SERUM ENZYMES Status: Acute (4) CKD (chronic kidney disease) stage 2, GFR 60-89 ml/min Code(s): N18.2 - CHRONIC KIDNEY DISEASE, STAGE 2 (MILD) Status: Acute (5) Type 2 diabetes mellitus Status: Acute - Plan Plan: Palpitations with hx of nonsustained ventricular tachycardia No abnormal rate/rhythm captured on our monitors. Hx of vtach. - Cardiology consulted, appreciate recommendations. - EP consulted - recommend link recorder and medication. Offered ablation but patient denied due to sedation for procedure. She has hx of cardiac issues under sedation - Continue home metoprolol - TSH 4.4 HFpEF - Echo 11/21 revealed no change from previous echocardiogram - continue metoprolol at this time; Cardiology consulted Elevated troponins likely demand from palpitations - 0.030, downtrended - no change on telemetry Elevated BNP - 223, baseline <200s - Echo 11/21 revealed no change from previous echocardiogram CKD2 - Renal function at baseline DM2 - Home metformin - Sliding scale cHTN - Home meds Anxiety - Home meds HLD - On lipitor 40mg daily dvt ppx: lovenox gi ppx: not indicated PCP: dispo: pending clinical course code: full
--- NOTE | 2018-11-22 08:46 | HP ---
ADDENDUM: Please see the history and physical done by Dr. Silke Schultz, for which I agree. The patient was seen, evaluated, and discussed and examined with the residents by bedside. HISTORY OF PRESENT ILLNESS: This is a 73-year-old female, history of some nonsustained ventricular tachycardia issues before, who had aortic valve replaced in 2016, has had some palpitations ever since and then almost passed out from heart palpitations yesterday. It sounds like not that long ago, was hospitalized, where Cardiology and Electrophysiology talked about getting an ablation, which she really was not interested and she is debating that now. She was not really having chest pain or shortness of breath yesterday. She does see Dr. Mcgill. Allergies, home medications, past medical history, past surgical history, family history, social history, review of systems, all per history and physical done by Dr. Schultz, for which I agree and was fully reviewed. PHYSICAL EXAMINATION: VITAL SIGNS/GENERAL: Initial blood pressure was a little bit high at 170s/70s, pulse rate in the 50s and 60s, but in no apparent distress. Alert and oriented x3. ENT: Normal. CHEST: Clear. CARDIOVASCULAR: Currently is regular rate and rhythm. We have not really picked up any major arrhythmias on telemetry. ABDOMEN: Benign. NEUROLOGIC: Normal. LABORATORY DATA: Blood workup was really for the most part noncontributory. ASSESSMENT AND PLAN: 1. Palpitations with history of some ventricular tachycardia issues. Plan is to get Cardiology involved, get their opinion and see if they want to proceed with the possibility of an EP study and ablation. If not, may just watch her for 24 hours and send her out as she is pretty stable otherwise, but we will get surgical services asst opinion on that. 2. Other medical problems including mild chronic kidney disease, hyperlipidemia, hypertension, osteoarthritis, and status post aortic valve replacement, and that all going to be continuing the same home medications. Job ID: [id number]
[2018-11-22] MEDS: Ferrous Sulfate 325 MG TAB PO SCH (10:33)
[2018-11-22] MEDS: metFORMIN 500 MG TAB PO SCH ×2 (10:33→17:29)
[2018-11-22] MEDS: Aspirin 81 mg Enteric Coated Tablet PO SCH (10:33)
[2018-11-22] MEDS: Amlodipine 5 MG TAB PO SCH (10:33)
[2018-11-22] MEDS: Enoxaparin Sodium 40 MG/0.4 ML SYRINGE SC SCH (10:38)
--- NOTE | 2018-11-22 11:23 | PRG ---
DATE OF SERVICE: 11/22/2018 Ms. Herndon is a pleasant 73-year-old black female who was admitted with near syncope and possibly associated unsustained ventricular tachycardia. We have had Cardiology involved, and they have recommended ablation; however, Ms. Herndon is reluctant because she states the last time she received conscious sedation she had cardiac arrest. In the event, we will let her to continue her discussions with Dr. Lowe. She has been stable since her hospitalization with no further symptomatic runs of nonsustained ventricular tachycardia. Her echocardiogram revealed a normal ejection fraction at 55% to 60%. She did however have 1/3 diastolic dysfunction and mild left ventricular hypertrophy. We will await her decision after discussions with Dr. Lowe regarding ablation. Job ID: [id number]
[2018-11-22] MEDS: Mexiletine HCl 150 MG CAP PO SCH ×2 (12:29→19:47)
[2018-11-22] MEDS ORDERED: Lidocaine 1% w/Epinephrine 1:100K 20 ML VIAL ONE (12:31)
--- NOTE | 2018-11-22 14:30 | CON ---
DATE OF CONSULTATION: 11/22/2018 ADDITIONAL REFERRING PHYSICIAN: Fransisco Mcgill MD HISTORY OF PRESENT ILLNESS: I am seeing Ms. Herndon at our [facility] [place] [facility] as an Electrophysiology eyewear consultant. Her problems are; 1. Recurrent palpitations and near syncopal spell. 2. Prior history of nonsustained ventricular tachycardia on beta-sea therapy. a. Moderate ectopy from her ventricles noted. 3. Preserved LVEF at 55% to 60%, mild concentric LVH, mild MR and TR adequately seated, bioprosthetic aortic valve in position on echo on 11/20/2018. 4. History of hypertension. 5. History of small vessel coronary artery disease with 80% obtuse marginal stenosis on a catheterization on 11/12/2017. 6. History of diabetes. ALLERGIES: CODEINE, NITROGLYCERIN, AND PENICILLIN. MEDICATIONS: At home included; 1. Metformin. 2. Amlodipine. 3. Lorazepam. 4. Vitamin D3. 5. Toprol-XL. 6. Ferrous sulfate. 7. Lipitor. 8. Aspirin. 9. Telmisartan. SUBJECTIVE: Ms. Herndon is here with recurrent palpitations. This also was associated at this time with a presyncopal spell. Prior to that, she has actually done fairly well. Last time, she saw us was in March 2018, where since her palpitations were minimal. She does not pass out. No stroke-like symptoms. No neurological deficits. No fever, chills, or cough. No PND or orthopnea. Rest of 12-point review of system otherwise unremarkable. PAST MEDICAL HISTORY: As above. SOCIAL HISTORY: The patient denies smoking, EtOH, or drug abuse. FAMILY HISTORY: Not contributory. OBJECTIVE DATA: VITAL SIGNS: Blood pressure 154/67, heart rate 56, respiratory rate 16, and temperature 98.2 degrees Fahrenheit. GENERAL: Alert and oriented woman, in no apparent distress. NECK: Supple. Jugular veins not distended. CHEST: Coarse without crackles. HEART: Sounds are regular to rate and rhythm. No murmur or gallop. ABDOMEN: Benign. Bowel sounds positive. EXTREMITIES: Lower extremities without edema, clubbing, or cyanosis. Pulses are adequate. NEUROLOGIC: The patient is nonfocal. MUSCULOSKELETAL: Without joint swelling or deformity. SKIN: Without rash. DATABASE: EKG is reviewed revealing sinus rhythm, no significant ST-T changes. Telemetry strips reveal low frequency ectopy. LABORATORY DATA: White count 6.7, hemoglobin 13.2, and platelet count is 192. Sodium 138, potassium 4.1, BUN is 11, and creatinine 0.85. The total cholesterol is 133, LDL of 52, and HDL of 46. TSH is 4.39. ASSESSMENT AND PLAN: Ms. Herndon is a pleasant 73-year-old woman with prior history of mild coronary artery disease, aortic valve replacement, preserved left ventricular ejection fraction, who has had a history of ectopy and nonsustained VT in the past on telemetry monitors. Now, she presents with a near syncopal spell, not clear whether it is truly associated with her arrhythmia or not. Currently, her ectopy burden is fairly low on continued beta-sea therapy. We discussed the options including ablation of the ventricular focus, although with low-grade in ectopy, this may not be easy to do. On the other hand, also we could attempt adding an antiarrhythmic agents. I am opting for Mexitil for an attempt to suppress the ventricular ectopy. Also, loop recorder implantation might be reasonable to monitor for near syncopal spells in the future to assess correlation with ventricular ectopy. Pros and cons of the loop recorder implant were discussed. She understands and willing to proceed. Job ID: [id number]
--- NOTE | 2018-11-22 16:11 | PRG ---
DATE OF SERVICE: 11/21/2018 ADDENDUM: Please see the note from Dr. Espinoza for which I agree. The patient was seen, evaluated, discussed, and examined with the residents by bedside. Really no major changes on her and has not had any more incidence of palpitations and she has been in the hospital. Cardiology, I think, is going to get her to talk to EPS tomorrow to consider the ablation that she refused a year ago, but otherwise, she is stable. Chest is clear. Cardiovascular, regular rhythm. No tremor. Everything else is stable on vitals. So, we will see with lab results. Job ID: [id number]
--- NOTE | 2018-11-22 17:03 | OP ---
DATE OF PROCEDURE: 11/22/2018 PROCEDURE PERFORMED: Loop recorder implant. REASON FOR PROCEDURE: Ms. Herndon is a 73-year-old woman, who has history of ventricular ectopy and nonsustained VT, but with preserved LVEF, prior aortic valve replacement, who now presented with near syncopal spell. Her pacing is monitored for further monitoring, also antiarrhythmic agent Mexitil will be started, monitoring for recurrent arrhythmia desired long-term. DESCRIPTION OF PROCEDURE: Left precordial area was prepped, draped, and anesthetized using subcutaneous lidocaine at the fourth intercostal space with [employer] LINQ insertion tool kit. Incision was made and the LINQ recorder was inserted without difficulty. The wound was closed with Dermabond and Steri- Strips. CONCLUSION: Successful LINQ recorder implant. PLAN: Continue routine monitoring. Job ID: [id number] MTDD
[2018-11-22] MEDS: Atorvastatin Calcium 40 MG TAB PO SCH (19:47)
--- NOTE | 2018-11-23 05:21 | PDOC.FM ---
- Subjective Subjective: Mrs Herndon is doing well today. she is ready to go home. She has no complaints after placement of loop recorder yesterday. She denies cp, sob, LE edema, abdominal pain, fever, chills. - Objective Vital Signs & Weight: Vital Signs (12 hours) Temp Pulse Resp BP Pulse Ox 11/23/18 04:02 98.2 F 60 18 145/67 H 94 L 11/22/18 19:45 98.2 F 66 18 158/69 H 94 L Weight Admit Weight 64.229 kg Weight 62.913 kg I&O: 11/21/18 11/22/18 11/23/18 06:59 06:59 06:59 Intake Total 1170 1200 360 Output Total 450 900 400 Balance 720 300 -40 Result Diagrams: 11/23/18 06:04 11/23/18 06:04 Phys Exam - Physical Examination Constitutional: NAD HEENT: PERRLA Neck: no JVD Respiratory: no wheezing, no rales, no rhonchi Cardiovascular: RRR Gastrointestinal: soft, non-tender, no distention Musculoskeletal: no edema, pulses present Psychiatric: A&O x 3 Skin: no rash Dx/Plan (1) (HFpEF) heart failure with preserved ejection fraction Code(s): I50.30 - UNSPECIFIED DIASTOLIC (CONGESTIVE) HEART FAILURE Status: Acute (2) Elevated troponin Code(s): R74.8 - ABNORMAL LEVELS OF OTHER SERUM ENZYMES Status: Acute (3) Heart palpitations Code(s): R00.2 - PALPITATIONS Status: Acute (4) Non-sustained ventricular tachycardia Code(s): I47.2 - VENTRICULAR TACHYCARDIA Status: Acute (5) S/P AVR (aortic valve replacement) Code(s): Z95.2 - PRESENCE OF PROSTHETIC HEART VALVE Status: Acute (6) Type 2 diabetes mellitus Status: Acute - Plan Plan: Plan: Nonsustained ventricular tachycardia - 5 beats documented on tele lasting < 2 seconds No abnormal rate/rhythm captured on our monitors. Hx of vtach. Palpitations became subjectively symptomatic leading to a near syncopal episode and subsequent admission. - Cardiology consulted, appreciate recommendations. - EP consulted - will place a loop recorder to capture syncopal/near syncopal events and begin antiarrythmic agent, mexitil. Dr. Lowe states the ventricular ectopy is low grade and might be difficult to ablate. HFpEF - Echo 11/21 revealed no change from previous echocardiogram - continue metoprolol at this time; Cardiology consulted Elevated troponins likely demand from palpitations - 0.030, downtrended - no change on telemetry Elevated BNP - 223, baseline <200s - Echo 11/21 revealed no change from previous echocardiogram CKD2 - Renal function at baseline DM2 - Home metformin - Sliding scale cHTN - Home meds Anxiety - Home meds HLD - On lipitor 40mg daily dvt ppx: lovenox gi ppx: not indicated PCP: dispo: pending clinical course code: full
[2018-11-23 07:04] LABS: Hemoglobin 12.9 g/dL (12.0-16.0); Mean Corpuscular HGB CONC 32.7 g/dL (32.0-36.0); Mean Corpuscular Hemoglobin 27.9 pg (27.0-31.0); Mean Corpuscular Volume 85.3 fL (78.0-98.0); Mean Platelet Volume 8.4 fL (7.4-10.4); Platelet Count 188 thou/uL (130-400); Red Blood Cell (RBC) Count 4.62 mill/uL (4.20-5.40); White Blood Cell (WBC) Count 6.8 thou/uL (4.8-10.8)
[2018-11-23 07:11] LABS: Anion Gap 13 mmol/L (10-20); BUN (Urea Nitrogen) 11 mg/dL (9.8-20.1); Calc. Creatinine Clearance 60 mL/min (70-130); Calcium 9.4 mg/dL (7.8-10.44); Carbon Dioxide 24 mmol/L (23-31); Chloride 104 mmol/L (98-107); Estimated GFR-MDRD 82; Glucose 136 mg/dL (83-110); Potassium 3.8 mmol/L (3.5-5.1); Sodium 137 mmol/L (136-145)
[2018-11-23 07:27] LABS: Eosinophils 4 % (0-10); Lymphocytes 44 % (21-51); MDiff Complete? YES; Monocytes 6 % (0-10); Neutrophil 39 % (42-75); RBC Morphology Normal; Reactive Lymphocytes 6 % (0-10)
[2018-11-23] MEDS: Ferrous Sulfate 325 MG TAB PO SCH (08:28)
[2018-11-23] MEDS: metFORMIN 500 MG TAB PO SCH (08:28)
[2018-11-23] MEDS: Aspirin 81 mg Enteric Coated Tablet PO SCH (08:28)
[2018-11-23] MEDS: Mexiletine HCl 150 MG CAP PO SCH (08:28)
[2018-11-23] MEDS: Enoxaparin Sodium 40 MG/0.4 ML SYRINGE SC SCH (08:28)
[2018-11-23 09:54] VITALS: BP 139/63; TEMP 97.5
[2018-11-23] MEDS: Amlodipine 5 MG TAB PO SCH (09:59)
--- NOTE | 2018-11-23 11:42 | PRG ---
DATE OF SERVICE: 11/23/2018 Ms. Herndon had a loop recorder placed yesterday and this morning is feeling fine. She is anxious to go home. She will be discharged with followup following her loop recorder. Dr. Lowe has added mexiletine to her Lopressor for nonsustained ventricular tachycardia. Job ID: [id number]
--- NOTE | 2018-11-24 10:20 | DIS ---
DATE OF ADMISSION: 11/21/2018 DATE OF DISCHARGE: 11/23/2018 RESIDENT: Prabhu Cagle DO ADMITTING ATTENDING: Da Gómez MD DISCHARGE ATTENDING: Saad Andrade MD CONSULTS: Cardiology consulted with Dr. Reyes Braun and electrophysiology consultation with Dr. Ihsan Lowe. PROCEDURES: 1. Echocardiogram on 11/20/2018, revealed ejection fraction is visually estimated at 55% to 60% with grade 1/3 diastolic dysfunction. Mild concentric left ventricular hypertrophy. Mildly dilated left atrium. Mildly enlarged right atrium size. Mild mitral regurgitation is present. Mild tricuspid regurgitation. Bioprosthetic aortic valve. Well seated. Mean gradient of 10 mmHg. No evidence of regurgitation, no vegetations. 2. Chest x-ray on 11/19/2018, revealed atherosclerosis of the aorta. No acute intrathoracic disease. 3. Loop recorder implant, performed by Dr. Ihsan Lowe. PRIMARY DIAGNOSES: 1. Nonsustained ventricular tachycardia, symptomatic. 2. Elevated troponin. 3. Heart palpitations. 4. Heart failure with preserved ejection fraction. SECONDARY DIAGNOSES: 1. Type 2 diabetes. 2. Hypertension. 3. Status post aortic valve replacement in 2015. 4. Hyperlipidemia. DISCHARGE MEDICATIONS: 1. Vitamin D3, 1000 units p.o. daily. 2. Atorvastatin 40 mg p.o. at bedtime. 3. Lorazepam 0.5 mg p.o. b.i.d. p.r.n. 4. Amlodipine 5 mg p.o. daily. 5. Ferrous sulfate 325 mg p.o. daily. 6. Metformin 500 mg p.o. b.i.d. with meals. 7. Metoprolol succinate 100 mg p.o. b.i.d. 8. Telmisartan 80 mg p.o. daily. 9. Aspirin 81 mg p.o. daily. 10. Mexiletine 150 mg p.o. t.i.d. HOSPITAL COURSE: Ms. Herndon is a 73-year-old female, who presented with palpitations and presyncopal episode lasting for approximately 10 seconds. She states she has had the daily palpitations in the past since her aortic valve replacement in 2015, but has not had a presyncopal episode like this since starting metoprolol 1 year ago. At that time, she was hospitalized for her palpitations and seen by Cardiology and EP. At that time, she decided she only wanted pharmacological management and denied a cardiac ablation. The patient reports compliance with daily medications. She denied any loss of consciousness, chest pain, shortness of breath, or lower extremity edema. She was placed on telemetry for continuous monitoring as arrhythmia was not captured on EKG. Cardiology was consulted and she continued her home metoprolol. Her BNP was mildly elevated from her baseline at 223, her last echo in 2018 revealed diastolic dysfunction. She also had an elevated troponin at 0.030 with her baseline usually between 0.04 and 0.15. Likely, the elevated troponin was due to demand ischemia during the episode of palpitations. Due to her not having any symptoms while inpatient, her metoprolol was kept the same. Electrophysiology was consulted with Cardiology to assess an ablation. Dr. Lowe with Electrophysiology in conjunction with the wishes of the patient, decided to place a Holter monitor and start an antiarrhythmic, mexiletine. Ms. Herndon had reservations to undergoing sedation due to her prior cardiac event while being sedated. Dr. Lowe placed the loop recorder on 11/22/2018, and started the mexiletine without any complications. On 11/23/2018, she did not have any complications secondary to the procedure or the new medication. She was found to have 5 beats of nonsustained V-tach lasting less than 2 seconds through the night, unsure if she was symptomatic at this time. She will be discharged and follow up with Cardiology and Electrophysiology and her primary care physician to further assess the V-tach and progression of her care. I appreciate Cardiology and Electrophysiology's recommendations. DISPOSITION: Stable. DISCHARGE INSTRUCTIONS: 1. Location: [facility]. 2. Diet: Heart-healthy diet and renal diet. 3. Activity: Ad lola. FOLLOWUP: 1. Dr. Cornell Arellano, 11/29/2018 at 9:[address] Fransisco Mcgill, 12/09/[address] Ihsan Lowe in the next 7 to 10 days. 4. Cardiac rehabFreddy. Job ID: [id number]
== END 2018-11-23 12:00 | disposition home or self-care (01) | DRG 261 ==
LOC: ERS 22:06 → 2SW 11-20 02:16 → OBSVTOIN 11-21 10:25 → 2NO 11-22 15:16
PROVIDERS: ADMIT Family Medicine; ATTEND Family Medicine
PROC: 0JH632Z Insertion of Monitoring Device into Chest Subcutaneous Tissue and Fascia, Percutaneous Approach (ICD-10-PCS; principal; 2018-11-22)
DX: I47.1 Supraventricular tachycardia (principal); I13.0 Hypertensive heart and chronic kidney disease with heart failure and stage 1 through stage 4 chronic kidney disease, or unspecified chronic kidney disease; I50.32 Chronic diastolic (congestive) heart failure; N18.2 Chronic kidney disease, stage 2 (mild); E11.22 Type 2 diabetes mellitus with diabetic chronic kidney disease; F41.9 Anxiety disorder, unspecified; E78.5 Hyperlipidemia, unspecified; R74.8 Abnormal levels of other serum enzymes; Z88.0 Allergy status to penicillin; Z88.5 Allergy status to narcotic agent; Z79.84 Long term (current) use of oral hypoglycemic drugs; Z79.82 Long term (current) use of aspirin; Z79.899 Other long term (current) drug therapy; Z95.2 Presence of prosthetic heart valve
CPT/HCPCS: 33285; 36415; 36416; 71046; 80048; 80053; 80061; 81003; 81015; 82550; 82553; 83735; 83880; 84100; 84443; 84484; 85025; 93005; 93306; 93798; 94760; C1764; J1650; J2001

== ENCOUNTER 2019-03-31 15:45 | Outpatient (CLI) | payer MEDICARE ==
--- NOTE | 2019-03-31 16:31 | MMO ---
Bilateral MAMMO Bilat Screen [facility]. CLINICAL HISTORY: Patient is 73 years old and is seen for screening. The patient has the following family history of breast cancer: sister. The patient has no personal history of cancer. The patient has a history of right Excisional Biopsy - benign. VIEWS: The views performed were: bilateral craniocaudal with tomosynthesis and bilateral mediolateral oblique with tomosynthesis. FILMS COMPARED: The present examination has been compared to prior imaging studies performed at [facility] on 06/08/2017 and 06/17/2017. This study has been interpreted with the assistance of computer-aided detection. MAMMOGRAM FINDINGS: The breasts are heterogeneously dense, which could obscure a lesion on mammography. There are no suspicious masses, suspicious calcifications, or new areas of architectural distortion. IMPRESSION: THERE IS NO MAMMOGRAPHIC EVIDENCE OF MALIGNANCY. A ROUTINE FOLLOW-UP MAMMOGRAM IN 1 YEAR IS RECOMMENDED. THE RESULTS OF THIS EXAM WERE SENT TO THE PATIENT. ACR BI-RADS Category 1 - Negative MAMMOGRAPHY NOTE: 1. A negative mammogram report should not delay a biopsy if a dominant of clinically suspicious mass is present. 2. Approximately 10% to 15% of breast cancers are not detected by mammography. 3. Adenosis and dense breasts may obscure an underlying neoplasm. Reported by: Kevin BLAIR Electonically Signed: [id number]
== END 2019-03-31 15:46 | disposition home or self-care (01) ==
LOC: BICMAMMO 15:45
PROVIDERS: ATTEND Family Medicine
DX: Z12.31 Encounter for screening mammogram for malignant neoplasm of breast (principal); Z91.89 Other specified personal risk factors, not elsewhere classified; Z80.3 Family history of malignant neoplasm of breast
CPT/HCPCS: 77063; 77067

== ENCOUNTER 2020-03-01 02:02 | Emergency (ER) | payer MEDICARE ==
[2020-03-01 07:42] LABS: CKMB 1.7 ng/mL (0-6.6)
--- NOTE | 2020-03-01 07:52 | CT ---
PRELIMINARY REPORT/[facility]/EMERGENCY AFTER HOURS PROCEDURE: EXAM: CT Abdomen and Pelvis with Intravenous Contrast CLINICAL HISTORY: 74-year-old female presenting to the emergency department with acute on chronic epigastric abdominal pain. State patient states that this is been worse over the last several days and most severe this ev ening. Today associated with nausea and vomiting. Patient denies hematochezia, melena, and hematemesi s. No associated fevers or chills. Patient states episodes do not typically last terribly long and cu rrently does not have this pain. She denies significant alcohol use. No frequent NSAID use. TECHNIQUE: Axial computed tomography images of the abdomen and pelvis with intravenous contrast. CONTRAST: With; 70ML ISOVUE 370 COMPARISON: None provided. FINDINGS: LUNG BASES: No basilar airspace consolidation or pleural effusion. LIVER: Unremarkable. GALLBLADDER AND BILE DUCTS: Status post cholecystectomy. Some mild prominence of the biliary system status post cholecystectomy without an obstructing stone or obvious mass identified. PANCREAS: Unremarkable. SPLEEN: Unremarkable. Some small granulomatous calcifications noted incidentally ADRENAL GLANDS: Unremarkable. KIDNEYS, URETERS, AND BLADDER: Unremarkable. 3 cm cortical cyst on the left. No hydronephrosis or nephrolithiasis. No ureteral or bladder calculi. STOMACH AND BOWEL: No obstruction. No wall thickening. No CT evidence of colitis or acute diverticulitis. Fairly extens jodie diverticulosis. APPENDIX: Normal appendix. PERITONEUM: No free fluid. No free air. LYMPH NODES: No lymphadenopathy. REPRODUCTIVE: Unremarkable as visualized. VASCULATURE: Prominent atherosclerotic disease of the abdominal aorta extending through the bifurcation without ev idence of aneurysm. BONES: No fracture or suspicious osseous abnormality. ABDOMINAL WALL AND SOFT TISSUES: Unremarkable. IMPRESSION: No acute intra-abdominal or pelvic abnormality. Several incidental-nonemergent findings as outlined above. ELECTRONICALLY SIGNED BY: Fadi Porter MD Mar 01, 2020 4:58:08 AM CDT This report is intended for review by the ordering physician only, in accordance of law. If you recei ve this report in error, please call [facility] at [phone]. FINAL REPORT EMERGENCY AFTER HOURS CT ABDOMEN AND PELVIS WITH CONTRAST: HISTORY: Abdominal pain. COMPARISON: None. FINDINGS: Mild midline skin thickening between the breasts at the level of the xiphoid process, incompletely ev aluated. No pericardial effusion. Lung bases relatively clear. Dense calcifications throughout the thoracic and abdominal aorta without aneurysmal dilatation. The appendix is visualized and is normal, and filled with gas. Hypodensity interpolar left kidney measures fluid attenuation highly suggestive of a cyst. Celiac markell nk is patent. 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 [place] effect of the intrahepatic and extrahepatic biliary system and from prior cholecys tectomy. Portal vein is patent. Moderate diverticular disease of the sigmoid colon without active current infl ammation. Adrenal glands unremarkable. No retroperitoneal or periaortic adenopathy. IMPRESSION: Findings and impression are concordant with the preliminary report by [facility]. 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 A conventional angiogram may be dean eficial if clinically warranted and can be a source of mesenteric ischemia although there is no evide nce of current ischemia on this exam.
--- NOTE | 2020-03-01 08:24 | RAD ---
CHEST 1 VIEW: Date: 03/01/2020 HISTORY: Abdominal pain. COMPARISON: Radiograph dated 10/29/2017. FINDINGS: Dense calcifications of aorta. No confluent air space consolidation, pneumothorax, or effusion. No ac [place] osseous abnormality. Prior aortic valve replacement. IMPRESSION: No acute intrathoracic abnormality. POS: [facility]
[2020-03-01 08:51] LABS: ALT (SGPT) 34 U/L (8-55); AST (SGOT) 43 U/L (5-34); Albumin 4.4 g/dL (3.4-4.8); Alkaline Phosphatase 148 U/L (40-110); Anion Gap 15 mmol/L (10-20); BUN (Urea Nitrogen) 14 mg/dL (9.8-20.1); Bilirubin, Total 0.5 mg/dL (0.2-1.2); Calc. Creatinine Clearance 0 mL/min (70-130); Calcium 9.7 mg/dL (7.8-10.44); Carbon Dioxide 26 mmol/L (23-31); Chloride 101 mmol/L (98-107); Estimated GFR-MDRD 66; Globulin 3.8 g/dL (2.4-3.5); Glucose 127 mg/dL (83-110); Lipase 36 U/L (8-78); Potassium 3.7 mmol/L (3.5-5.1); Protein, Total 8.2 g/dL (6.0-8.3); Sodium 138 mmol/L (136-145); Troponin I 0.052 ng/mL (< 0.028)
[2020-03-01 09:35] LABS: #Basophils 0.1 thou/uL (0.0-0.2); #Eosinphils 0.2 thou/uL (0.0-0.7); #Monocytes 0.7 thou/uL (0.11-0.59); #Neutrophils 5.1 thou/uL (1.40-6.50); %Basophils 0.9 % (0.0-1.0); %Eosinophils 2.7 % (0.0-10.0); %Lymphocytes 32.7 % (21.0-51.0); %Monocytes 7.3 % (0.0-10.0); %Neutrophils 56.4 % (42.0-75.0); Hemoglobin 14.2 g/dL (12.0-16.0); Mean Corpuscular HGB CONC 32.3 g/dL (32.0-36.0); Mean Corpuscular Hemoglobin 27.5 pg (27.0-31.0); Mean Corpuscular Volume 85.2 fL (78.0-98.0); Platelet Count 226 thou/uL (130-400); Red Blood Cell (RBC) Count 5.15 mill/uL (4.20-5.40); White Blood Cell (WBC) Count 9.1 thou/uL (4.8-10.8)
[2020-03-01 10:28] LABS: Clarity Clear (Clear); Leukocyte Negative (Negative); Nitrite Negative (Negative)
[2020-03-01 10:29] LABS: Protein, Urine (Dipstick) Negative (Neg-Trace)
[2020-03-01 10:30] LABS: Bilirubin Negative (Negative); Glucose, Urine (Dipstick) Negative (Negative); Ketone, Urine Negative (Negative); Urobilinogen 0.2 mg/dL (Less than 2)
[2020-03-01 10:31] LABS: Blood, Urine Negative (Negative)
[2020-03-01 11:17] LABS: Bacteria/HPF None Seen HPF (None Seen); RBC/HPF None Seen HPF (0-3); Squamous Epithelial None Seen HPF (0-3); WBC/HPF None Seen HPF (0-3)
== END 2020-03-01 08:25 | disposition home or self-care (01) ==
LOC: ERS 02:02
DX: R10.13 Epigastric pain (principal); E11.9 Type 2 diabetes mellitus without complications; E78.00 Pure hypercholesterolemia, unspecified; I10 Essential (primary) hypertension
CPT/HCPCS: 36415; 71045; 74176; 80053; 81001; 82553; 83690; 84484; 85025; 87086; 93005

== ENCOUNTER 2020-03-24 02:35 | Observation (INO) | payer MEDICARE ==
[2020-03-24 03:46] LABS: Eosinophils 3 % (0-10); Hemoglobin 13.5 g/dL (12.0-16.0); Lymphocytes 49 % (21-51); MDiff Complete? YES; Mean Corpuscular HGB CONC 33.9 g/dL (32.0-36.0); Mean Corpuscular Hemoglobin 28.5 pg (27.0-31.0); Mean Platelet Volume 8.3 fL (7.4-10.4); Monocytes 10 % (0-10); Neutrophil 38 % (42-75); Platelet Count 209 thou/uL (130-400); Platelet Morphology Comment Appears Adequate; RBC Distribution Width 11.8 % (11.5-14.5); Red Blood Cell (RBC) Count 4.73 mill/uL (4.20-5.40); White Blood Cell (WBC) Count 8.1 thou/uL (4.8-10.8)
[2020-03-24 04:05] LABS: ALT (SGPT) 19 U/L (8-55); AST (SGOT) 20 U/L (5-34); Albumin 3.9 g/dL (3.4-4.8); Alkaline Phosphatase 128 U/L (40-110); Anion Gap 14 mmol/L (10-20); BUN (Urea Nitrogen) 11 mg/dL (9.8-20.1); Bilirubin, Total 0.3 mg/dL (0.2-1.2); Calc. Creatinine Clearance 0 mL/min (70-130); Calcium 9.2 mg/dL (7.8-10.44); Carbon Dioxide 25 mmol/L (23-31); Chloride 104 mmol/L (98-107); Estimated GFR-MDRD 79; Globulin 3.5 g/dL (2.4-3.5); Glucose 103 mg/dL (83-110); Lipase 36 U/L (8-78); Potassium 3.3 mmol/L (3.5-5.1); Protein, Total 7.4 g/dL (6.0-8.3); Sodium 140 mmol/L (136-145)
[2020-03-24 04:27] LABS: CKMB 1.6 ng/mL (0-6.6)
[2020-03-24] MEDS ORDERED: Aspirin Chewable 81 MG TAB ONE (04:37)
--- NOTE | 2020-03-24 04:42 | PDOC.FPRHP ---
- History of Present Illness Chief Complaint: Near syncope History of Present Illness: Patient is a 74 year old female with a history of nonsustained vtach with loop recorder implant, CAD, aortic stenosis s/p replacement, HTN and DM who presents to the ED with complains of near syncope episode. The patient says she was laying down watching TV last evening when she had sudden onset of dizziness, difficulty seeing, and near syncope described as "my head was squeezing and I got the chills." She reports the episode lasted approximately 5 minutes with resolution of symptoms afterward. She notes generalized weakness afterward. Denies headache, chest pain, palpitations, and SOB now or during the event. Notes intermittent dull epigastric pain and nausea for the past 1 month that is now resolved. Has a hx of near syncope episodes and nonsustained vtach. Loop recorder implant placed on 11/22/18. ED Course: In the Ed, EKG was NSR with no ST segment changes. Patient given ASA 324mg. - Allergies/Adverse Reactions Allergies Allergy/AdvReac Type Severity Reaction Status Date / Time codeine Allergy Verified 11/24/17 02:46 nitroglycerin Allergy Rash Verified 11/24/17 02:46 Penicillins Allergy Verified 11/24/17 02:46 - Home Medications Medication Instructions Recorded Confirmed Type Cholecalciferol (Vitamin D3) 1,000 unit PO DAILY 02/20/16 11/20/18 History [Vitamin D3] Atorvastatin Calcium 40 mg PO HS #30 tablet 03/24/16 11/20/18 Rx Lorazepam [Ativan] 0.5 mg PO BID PRN 10/29/17 11/20/18 History amLODIPine Besylate [Norvasc] 5 mg PO DAILY 10/30/17 11/20/18 History Ferrous Sulfate [Feosol] 325 mg PO DAILY tab 11/12/17 11/20/18 Rx metFORMIN [Glucophage] 500 mg PO BID-WM 11/24/17 11/20/18 History Metoprolol Succinate [Toprol XL] 100 mg PO BID #60 tab 11/27/17 11/20/18 Rx Aspirin [Ecotrin Regular Strength] 81 mg PO DAILY 11/20/18 11/20/18 History Telmisartan 80 mg PO DAILY 11/20/18 11/20/18 History Mexiletine HCl 150 mg PO TID #90 cap 11/23/18 Rx - History PMHx: hx unsustained vtach, CAD, s/p repair, HTN, HLD, DM2, OA, peripheral neuropathy, GERD PSHx: Aortic valve repair 2016, tubal ligation, cholecystectomy FHx: Mother - CAD, HTN; hx colon CA Social: 60 pack-year smoking history, quit in 2004, no alcohol or drugs - Review of Systems General: denies: fever/chills, fatigue Eyes: denies: eye pain, vision changes ENT: denies: nasal congestion, rhinorrhea Respiratory: denies: cough, congestion, shortness of breath Cardiovascular: denies: chest pain, palpitation, edema Gastrointestinal: denies: nausea, abdominal pain Genitourinary: denies: dysuria, polyuria Skin: denies: rashes, jaundice Musculoskeletal: denies: pain, tenderness Neurological: reports: weakness (Generalized). denies: numbness, syncope, seizure Psychological: denies: anxiety, depression - Vital signs BP: [133/57] HR: [65] RR: [18] Tmax: [97.6] Pox: [98]% on [RA] Wt: [64.9kg] - Physical Exam Constitutional: NAD, awake, alert and oriented HEENT: normocephalic and atraumatic, no scleral icterus, MMM Neck: FROM, trachea midline Chest: no-tender to palpation Heart: RRR, normal S1/S2, no edema -Heart: Systolic murmur, most prominent at upper left sternal border, with radiation to carotid bilaterally Lungs: CTAB, no respiratory distress, good air movement Abdomen: soft, non-tender, bowel sounds present Musculoskeletal: normal structure, ROM grossly normal Neurological: no focal deficit Skin: no rash/lesions Heme/Lymphatic: no unusual bruising or bleeding Psychiatric: normal mood and affect FMR H&P: Results - Labs Result Diagrams: 03/24/20 03:02 03/24/20 03:02 Lab results: WBC 8.1 thou/uL (4.8-10.8) 03/24/20 03:02 Hgb 13.5 g/dL (12.0-16.0) 03/24/20 03:02 Hct 39.7 % (36.0-47.0) 03/24/20 03:02 MCV 84.0 fL (78.0-98.0) 03/24/20 03:02 Plt Count 209 thou/uL (130-400) 03/24/20 03:02 Sodium 140 mmol/L (136-145) 03/24/20 03:02 Potassium 3.3 mmol/L (3.5-5.1) L 03/24/20 03:02 Chloride 104 mmol/L (98-107) 03/24/20 03:02 Carbon Dioxide 25 mmol/L (23-31) 03/24/20 03:02 BUN 11 mg/dL (9.8-20.1) 03/24/20 03:02 Creatinine 0.85 mg/dL (0.6-1.1) 03/24/20 03:02 Glucose 103 mg/dL (83-110) 03/24/20 03:02 Calcium 9.2 mg/dL (7.8-10.44) 03/24/20 03:02 Total Bilirubin 0.3 mg/dL (0.2-1.2) 03/24/20 03:02 AST 20 U/L (5-34) 03/24/20 03:02 ALT 19 U/L (8-55) 03/24/20 03:02 Alkaline Phosphatase 128 U/L (40-110) H 03/24/20 03:02 CK-MB (CK-2) 1.6 ng/mL (0-6.6) 03/24/20 03:02 Serum Total Protein 7.4 g/dL (6.0-8.3) 03/24/20 03:02 Albumin 3.9 g/dL (3.4-4.8) 03/24/20 03:02 Lipase 36 U/L (8-78) 03/24/20 03:02 - EKG Interpretation EKG: EKG: NSR, HR 65, no ST segment changes, PVC present FMR H&P: A/P - Plan Near syncope Likely due to arrythmia given hx of tachycardia and nonsustained vtach. Currently asymptomatic. Cardiac surgeon: Dr. Grady. Retail Assistant Manager: Dr. Mcgill -Admit to tele obs for continuous monitoring -Mag, phos level -Investigate loop recorder for arrhythmic episodes -Consider cardiology consult pending loop recorder results Indeterminate troponin -Trop 0.049. Trend trop x 3 -EKG PRN Hypokalemia K 3.3 in ED -40 mEq ordered Likely mesentaric ischemia 2/[address] Abdomen on 03/01/20 ED visit. Intermittent epigastric pain resolved. Has been followed by Dr. Grady who recommended stent placement -Aware CAD -Continue home medications HTN -Continue home medications HLD -Continue home medications DM2 A1C 6.8 on 03/05/20 -Continue home medications Osteoarthritis -Continue home medications Peripheral neuropathy GERD -Aware PCP: SHAYAN Arellano Code: FULL DVT ppx: Lovenox Dispo: Admit to tele obs, expected LOS < 48 hours FMR H&P: Upper Level - Plan Date/Time: 03/24/20 0442 Calista Downing, have evaluated this patient and agree with findings/plan as outlined by engineering intern resident. Pertinent changes/additions are listed here. 74 yo F is admitted for near syncopal episode. She reports laying down watching TV when she felt a cold sensation and pressure in her head and then felt like she would pass out. Reports several day hx nausea, no vomiting. No CP, SOB. Has ongoing epigastric pain, not present for about a week. This is managed outpatient with Dr. Grady, plan for SMA procedure in the coming weeks. CT 03/01/20 with near complete narrowing of SMA, without ischemia at that time She has a history of nonsustained VT, ventricular ectopy, aortic valve replacement 2015. Last cath 2017 with 80% obtuse marginal stenosis. She had a LINQ recorder implanted 11/22/[address] Lowe for near syncopal event and has been on Mexitil at that time. Last Echo 11/20/18 with EF 55-60%, 1/3 diastolic dysfunction EKG NSR with PVC, V1-2 t wave inversion, no ST changes Given ASA in ED Presyncope - With history of presyncope, nonsustained VT and ventricular ectopy - History not consistent with orthostasis, vasovagal. Most likely arrhythmic. - Will need to interrogate loop recorder. Monitor on telemetry - Continue home beta sea, mexitil - Initial troponin 0.049, at baseline, EKG without changes - Has regular follow up with cardiology, Dr. Mcgill. Unsure when last echo was. Hypokalemia - 3.3, replace and recheck PCP: Sunitha Attending: Dmitriy Dispo: admit to telemetry for observation, expected LOS <48h Addendum - Attending - Attending Attestation Date/Time: 03/24/20 2466 I personally evaluated the patient and discussed the management with Dr. Clement melton/Jose. I agree with the History, Examination, Assessment and Plan documented above with any addition or exceptions noted below. Patient here for concerns of syncope or pre-syncope. Her troponins were indeterminate as they always are. Will have her loop recorder interrogated, monitor on tele, orthostatic vitals, further mgmt pending clinical course.
[2020-03-24] MEDS ORDERED: Dextrose 5% in Water 1,000 ML IV PRN (05:57)
[2020-03-24] MEDS ORDERED: Ondansetron PF 4 MG/2 ML Vial IVP PRN (05:57)
[2020-03-24] MEDS ORDERED: Acetaminophen 325 MG TAB PO PRN (05:57)
[2020-03-24] MEDS ORDERED: HumaLOG 300 UNITS/3 ML VIAL SC PRN ×2 (05:57)
[2020-03-24] MEDS ORDERED: Ondansetron ODT 4 MG TAB PO PRN (05:57)
[2020-03-24] MEDS ORDERED: Dextrose 50% Abboject 50 ML SYRINGE SLOW IVP PRN (05:57)
[2020-03-24] MEDS ORDERED: Lorazepam 0.5 MG TAB PO PRN (06:02)
[2020-03-24 06:27] LABS: Troponin I 0.066 ng/mL (< 0.028)
[2020-03-24] MEDS ORDERED: Potassium Chloride 20 MEQ TAB PO SCH (06:30)
[2020-03-24 07:50] VITALS: BMI 25.9
[2020-03-24 08:29] LABS: Magnesium 1.4 mg/dL (1.6-2.6); Phosphorus 3.3 mg/dL (2.3-4.7)
[2020-03-24] MEDS: Ferrous Sulfate 325 MG TAB PO SCH (08:36)
[2020-03-24] MEDS: Enoxaparin Sodium 40 MG/0.4 ML SYRINGE SC SCH (08:37)
[2020-03-24] MEDS: Cholecalciferol 1,000 UNITS (25 MCG) TAB PO SCH (08:37)
[2020-03-24] MEDS: metFORMIN 500 MG TAB PO SCH ×2 (08:37→16:16)
[2020-03-24] MEDS: Amlodipine 10 MG TAB PO SCH (08:37)
[2020-03-24] MEDS: Losartan 25 MG TAB PO SCH (08:37)
[2020-03-24] MEDS: Carvedilol 6.25 MG TAB PO SCH ×2 (08:37→16:16)
[2020-03-24] MEDS: Aspirin 81 mg Enteric Coated Tablet PO SCH (08:37)
[2020-03-24] MEDS ORDERED: Magnesium 2 GM/50 ML 2 GM in Premix Bag 1 BAG IVPB SCH (09:30)
[2020-03-24 10:53] LABS: Troponin I 0.063 ng/mL (< 0.028)
[2020-03-24] MEDS ORDERED: FLU VACC QS2020-21(65YR UP)/PF 240 MCG/0.7 ML SYRINGE IM ONE (11:45)
[2020-03-24] MEDS: Mexiletine HCl 150 MG CAP PO SCH ×3 (12:25→22:43)
[2020-03-24] MEDS ORDERED: Atorvastatin Calcium 40 MG TAB PO SCH (21:00)
[2020-03-25 05:14] LABS: Anion Gap 14 mmol/L (10-20); BUN (Urea Nitrogen) 10 mg/dL (9.8-20.1); Calc. Creatinine Clearance 60 mL/min (70-130); Calcium 9.3 mg/dL (7.8-10.44); Carbon Dioxide 25 mmol/L (23-31); Chloride 104 mmol/L (98-107); Estimated GFR-MDRD 81; Glucose 113 mg/dL (83-110); Magnesium 1.6 mg/dL (1.6-2.6); Potassium 3.9 mmol/L (3.5-5.1); Sodium 139 mmol/L (136-145)
--- NOTE | 2020-03-25 05:34 | PDOC.FM ---
- Subjective Subjective: Pt rested well overnight. Symptoms have resolved. Tolerating diet, voiding and ambulating well. - Objective Vital Signs & Weight: Vital Signs (12 hours) Temp Pulse Resp BP BP Pulse Ox 03/25/20 04:00 60 16 145/67 H 99 03/24/20 21:20 97.9 F 68 20 150/68 H 99 03/24/20 19:24 98.2 F 70 16 146/72 H 98 Weight Weight 64.319 kg I&O: 03/23/20 03/24/20 03/25/20 06:59 06:59 05:59 Intake Total 1000 Balance 1000 Result Diagrams: 03/24/20 03:02 03/25/20 04:34 Phys Exam - Physical Examination Constitutional: NAD HEENT: moist MMs, sclera anicteric Neck: supple, full ROM Respiratory: no wheezing, clear to auscultation bilateral Cardiovascular: RRR, no significant murmur Gastrointestinal: soft, non-tender, no distention Musculoskeletal: no edema, pulses present Neurological: non-focal, moves all 4 limbs Psychiatric: normal affect, A&O x 3 Skin: no rash, cap refill <2 seconds Dx/Plan - Plan Plan: Near syncope -unknown etiology, possible cardiac in origin vs BPPV vs TIA -Admit to tele obs for continuous monitoring -indeterminate tropx3, seems to be baseline for her -electrolytes WNL, orthostatics negative -Loop recorder interrogation: no abnormalities -will peform [place]-Hallpike test today Hypokalemia -K 3.3-->3.9 -resolved 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 -Asymptomatic -followed by Dr. Grady who recommended stent placement CAD -Continue home medications HTN -Continue home medications HLD -Continue home medications DM2 -A1C 6.8 on 03/05/20 -Continue home medications Osteoarthritis -Continue home medications Peripheral neuropathy GERD -Aware PCP: SHAYAN Arellano Code: FULL DVT ppx: Lovenox Dispo: Admit to tele obs, expected LOS < 48 hours Addendum - Attending - Attending Attestation Date/Time: 03/25/20 7912 I personally evaluated the patient and discussed the management with Dr. Antoine. I agree with the History, Examination, Assessment and Plan documented above with any addition or exceptions noted below. Workup has not revealed any major cause of her symptoms. She is likely stable for discharge today.
[2020-03-25] MEDS: Aspirin 81 mg Enteric Coated Tablet PO SCH (09:20)
[2020-03-25] MEDS: Carvedilol 6.25 MG TAB PO SCH (09:21)
[2020-03-25] MEDS: metFORMIN 500 MG TAB PO SCH (09:21)
[2020-03-25] MEDS: Ferrous Sulfate 325 MG TAB PO SCH (09:21)
[2020-03-25] MEDS: Cholecalciferol 1,000 UNITS (25 MCG) TAB PO SCH (09:21)
[2020-03-25] MEDS: Amlodipine 10 MG TAB PO SCH (09:22)
[2020-03-25] MEDS: Mexiletine HCl 150 MG CAP PO SCH (09:22)
[2020-03-25] MEDS: Enoxaparin Sodium 40 MG/0.4 ML SYRINGE SC SCH (09:22)
[2020-03-25] MEDS: Losartan 25 MG TAB PO SCH (09:59)
[2020-03-25 12:19] VITALS: TEMP 98.2
[2020-03-25 14:32] VITALS: BP 148/65
[2020-03-26 00:36] LABS: SARS-CoV-2 MS2 Positive; SARS-CoV-2 N Gene Negative; SARS-CoV-2 S Gene Negative; SARS-CoV-2 by NAA Not Detected (Not Detected); SARS-CoV-2 orf1ab Negative
--- NOTE | 2020-03-26 14:59 | PDOC.DS.DS ---
Provider - Provider Date of Admission: 03/24/20 04:43 Date of Discharge: 03/25/20 Admitting Provider: Vahe Valderrama MD Consultations: None Primary Care Physician: Cornell Arellano MD Course - Hospital Course Hospital Course: 74 yo female with a hx of nonsustained vtach with loop recorder implant, CAD, aortic stenosis s/p replacement, HTN and DM who presents to the ED with complains of near syncope episode. Had sudden onset of dizziness, difficulty seeing, and near syncope. She reports the episode lasted approximately 5 minutes with resolution of symptoms afterward. She notes generalized weakness afterward. Denies headache, chest pain, palpitations, and SOB. Has a hx of near syncope episodes and nonsustained vtach. Loop recorder implant placed on 11/22/18. In the ED, EKG was NSR with no ST segment changes. Patient given ASA 324mg. During h ospital stay, patient was on continuous tele monitor maintaining NSR, rate in the 70s-80s. Labs: indeterminate tropx3, seems to be baseline for her, electrolytes WNL, orthostatics negative. Loop recorder interrogation: no abnormalities. [place]-Hallpike test done and elicited mild symptoms upon sitting up, no nystagmus. Resuscitation Status: 03/24/20 05:57 Resuscitation Status Routine Co-Sign Provider: Resuscitation Status: FULL: Full Resuscitation Discussed with: Patient - Labs Lab Results: 03/24/20 03:02 03/25/20 04:34 - Physical Exam Vitals: Weight Weight 64.319 kg BP: [133/57] HR: [65] RR: [18] Tmax: [97.6] Pox: [98]% on [RA] Wt: [64.9kg] Physical Exam: The patient was seen and examined on the day of discharge. Problem - Discharge Plan Plan of Treatment: Near syncope -unknown etiology, but likely BPPV. -sx resolved -Advised patient on return precautions -VSS, discharge home, f/u in 1-2 weeks with PCP - Problem (1) Pre-syncope Status: Resolved Plan - Discharge Medications Home Medications: Medication Instructions Recorded Confirmed Type Cholecalciferol (Vitamin D3) 1,000 unit PO DAILY 02/20/16 03/24/20 History [Vitamin D3] Atorvastatin Calcium 40 mg PO HS #30 tablet 03/24/16 03/24/20 Rx amLODIPine Besylate [Norvasc] 10 mg PO DAILY 10/30/17 03/24/20 History Ferrous Sulfate [Feosol] 325 mg PO DAILY tab 11/12/17 03/24/20 Rx metFORMIN [Glucophage] 500 mg PO BID-WM 11/24/17 03/24/20 History Telmisartan 80 mg PO DAILY 11/20/18 03/24/20 History Aspirin [Ecotrin Low Strength] 81 mg PO DAILY 03/24/20 03/24/20 History Carvedilol [Coreg] 6.25 mg PO BID 03/24/20 03/24/20 History Lidocaine 5% Patch [Lidoderm 5% 1 patch TD Q12HR 03/24/20 03/24/20 History Patch] Mexiletine HCl 150 mg PO BID 03/24/20 03/24/20 History Naproxen 250 mg PO BID PRN 03/24/20 03/24/20 History Allergies: codeine Allergy (Verified 03/24/20 07:54) nitroglycerin Allergy (Verified 03/24/20 07:54) Rash Penicillins Allergy (Verified 03/24/20 07:54) - Discharge Instructions Activity:: Activity as Tolerated Nourishment:: Heart Healthy Diet Therapies:: Not Applicable Equipment/Supplies:: Not Applicable IV Therapy:: Not Applicable - Follow up Plan Referrals: Cornell Arellano MD [Primary Care Provider] - 7 Days (PLEASE FOLLOW UP WITH YOUR PRIMARY CARE PYHSCIAN IN 7 DAYS) Disposition: HOME Quality - Care Measures CORE MEASURES:: N/A
== END 2020-03-25 16:05 | disposition home or self-care (01) ==
LOC: ERS 02:35 → 2SE 04:43 → 2NO 21:44
PROVIDERS: ADMIT Student in an Organized Health Care Education/Training Program; ATTEND Student in an Organized Health Care Education/Training Program
DX: R55 Syncope and collapse (principal); E87.6 Hypokalemia; I25.10 Atherosclerotic heart disease of native coronary artery without angina pectoris; I10 Essential (primary) hypertension; E78.5 Hyperlipidemia, unspecified; E11.42 Type 2 diabetes mellitus with diabetic polyneuropathy; M19.90 Unspecified osteoarthritis, unspecified site; K21.9 Gastro-esophageal reflux disease without esophagitis; I35.0 Nonrheumatic aortic (valve) stenosis; Z87.891 Personal history of nicotine dependence; Z79.82 Long term (current) use of aspirin; Z79.84 Long term (current) use of oral hypoglycemic drugs; Z79.899 Other long term (current) drug therapy; Z88.0 Allergy status to penicillin; Z88.5 Allergy status to narcotic agent; Z88.8 Allergy status to other drugs, medicaments and biological substances; Z23 Encounter for immunization; Z20.828 Contact with and (suspected) exposure to other viral communicable diseases
CPT/HCPCS: 80048; 80053; 82553; 82962 ×2; 83690; 83735 ×2; 84100; 84484 ×2; 85025; 90662; 93005; 96365; 96372 ×2; 99285; G0008; G0378 ×3; U0003; 36415; 36416; 87635; 90471; J1650; J3475

== ENCOUNTER 2020-03-29 06:24 | Outpatient (CLI) | payer MEDICARE ==
[2020-03-29 09:38] LABS: #Basophils 0.1 10x3/uL (0.0-0.2); #Eosinphils 0.3 10x3/uL (0.0-0.5); #Monocytes 0.5 10x3/uL (0.0-1.1); %Basophils 0.8 % (0.0-2.0); %Eosinophils 4.2 % (0.0-6.0); %Lymphocytes 56.4 % (18.0-47.0); %Monocytes 8.6 % (0.0-10.0); Hemoglobin 13.4 g/dL (12.0-16.0); Mean Corpuscular HGB CONC 31.5 G/DL (32.0-36.0); Mean Corpuscular Hemoglobin 26.2 PG (27.0-33.0); Mean Corpuscular Volume 83.4 fl (80.0-100.0); Mean Platelet Volume 10.9 fl (7.4-10.4); Platelet Count 234 10x3/uL (130-400); RBC Distribution Width 12.9 % (11.5-14.5); Red Blood Cell (RBC) Count 5.11 10x6/uL (3.90-5.20)
[2020-03-29 09:40] LABS: #Neutrophils 1.8 10x3/uL (1.5-8.4)
[2020-03-29 10:15] LABS: Anion Gap 18 mmol/L (10-20); BUN (Urea Nitrogen) 11 mg/dL (9.8-20.1); Calc. Creatinine Clearance 0 mL/min (70-130); Calcium 9.5 mg/dL (7.8-10.44); Carbon Dioxide 24 mmol/L (23-31); Chloride 102 mmol/L (98-107); Estimated GFR-MDRD 75; Glucose 125 mg/dL (83-110); Potassium 4.3 mmol/L (3.5-5.1); Sodium 140 mmol/L (136-145)
[2020-03-30 15:06] LABS: SARS-CoV-2 MS2 Positive; SARS-CoV-2 N Gene Negative; SARS-CoV-2 S Gene Negative; SARS-CoV-2 by NAA Not Detected (NotDetected); SARS-CoV-2 orf1ab Negative
== END 2020-03-29 06:25 | disposition home or self-care (01) ==
LOC: LABBT 06:24
PROVIDERS: ATTEND Thoracic Surgery (Cardiothoracic Vascular Surgery)
DX: Z01.812 Encounter for preprocedural laboratory examination (principal); Z20.828 Contact with and (suspected) exposure to other viral communicable diseases; K55.1 Chronic vascular disorders of intestine
CPT/HCPCS: 80048; 85025; U0003; 87635

== ENCOUNTER 2020-04-02 05:35 | Day surgery (SDC) | payer MEDICARE ==
[2020-03-30 14:33] VITALS: BMI 22.4
[2020-04-02] MEDS ORDERED: Heparin 10,000 UNITS/ 10 ML VIAL ONE (08:51)
[2020-04-02] MEDS ORDERED: Protamine Sulfate 50 MG/5 ML VIAL ONE (08:58)
--- NOTE | 2020-04-02 09:34 | OP ---
DATE OF PROCEDURE: 04/02/2020 PREOPERATIVE DIAGNOSIS: Intestinal angina. POSTOPERATIVE DIAGNOSIS: Intestinal angina. PROCEDURES PERFORMED: 1. Abdominal aortogram. 2. Selective SMA angiogram. 3. Primary stenting with a 5 x 19 Express SD renal stent of the SMA. TOTAL CONTRAST: 31 mL. TOTAL FLUORO TIME: 5.1 minutes. DESCRIPTION OF PROCEDURE: After consent was obtained, the patient was brought to the laboratory technology teacher, placed in supine position on laboratory technology teacher table. Appropriate central line and monitors were placed, and IV sedation given. Groins were prepped and draped in usual sterile fashion. Using ultrasound guidance, the right groin was accessed with a micropuncture needle and wire. This was upsized to a 5-Gambian sheath. A Contra catheter was placed in the abdominal aorta. Hand-injected aortogram was performed in 2 planes. The SMA was localized. A Contra catheter was guided down into the orifice of the SMA and hand-injected arteriogram performed. This showed a severe stenosis approximately 0.5 cm distal to the origin of the SMA. The patient was given 5000 units of heparin. The sheath was then up sized to a 6-Gambian sheath. A CEDEÑO guide was then placed into the origin of the SMA. 0.014 Luge wire was passed distally into the SMA. Multiple injections were performed confirming our location and the location of the stenosis. A 5 x 19 stent was selected in position. The stent was inflated to 14 mmHg and then deflated. The balloon was removed. Followup angiogram showed an excellent result. On the angiograms of the celiac axis, there was less than 50% stenosis of the celiac and this was not addressed. A 25 mg of protamine was given. Sheath was removed and manual pressure held for hemostasis. The patient tolerated the procedure well and was transferred to recovery area in stable condition at home later today. Job ID: [id number]
[2020-04-02] MEDS ORDERED: Iopamidol 370 76% 50 ML VIAL FS ONE (09:43)
[2020-04-02] MEDS ORDERED: Fentanyl 100 MCG/2 ML VIAL ONE (12:20)
[2020-04-02] MEDS ORDERED: Acetaminophen 325 MG TAB ONE (12:58)
== END 2020-04-02 15:11 | disposition home or self-care (01) ==
LOC: SDC 05:35
PROVIDERS: ATTEND Thoracic Surgery (Cardiothoracic Vascular Surgery)
PROC: 047 Lower Arteries, Dilation (ICD-10-PCS; principal; 2020-04-02)
DX: K55.1 Chronic vascular disorders of intestine (principal); I10 Essential (primary) hypertension; E78.2 Mixed hyperlipidemia; I35.0 Nonrheumatic aortic (valve) stenosis; Z79.82 Long term (current) use of aspirin; Z79.84 Long term (current) use of oral hypoglycemic drugs; Z79.899 Other long term (current) drug therapy; Z87.891 Personal history of nicotine dependence; Z88.0 Allergy status to penicillin; Z88.5 Allergy status to narcotic agent; Z88.8 Allergy status to other drugs, medicaments and biological substances
CPT/HCPCS: 37221; 76942; 85347 ×2; C1876; J1644; J2720; J3010; Q9967

== ENCOUNTER 2021-02-07 08:33 | Outpatient (CLI) | payer MEDICARE | END 2021-02-07 08:34 | disposition home or self-care (01) | LOC: BICMAMMO 08:33 | PROVIDERS: ATTEND Family Medicine | DX: Z12.31 Encounter for screening mammogram for malignant neoplasm of breast (principal); Z80.3 Family history of malignant neoplasm of breast | CPT/HCPCS: 77063; 77067 ==

== ENCOUNTER 2022-02-11 08:36 | Outpatient (CLI) | payer MEDICARE | END 2022-02-11 08:37 | disposition home or self-care (01) | LOC: BICMAMMO 08:36 | PROVIDERS: ATTEND Family Medicine | DX: Z12.31 Encounter for screening mammogram for malignant neoplasm of breast (principal); Z91.89 Other specified personal risk factors, not elsewhere classified; Z80.3 Family history of malignant neoplasm of breast | CPT/HCPCS: 77063; 77067 ==

== ENCOUNTER 2022-06-01 15:37 | Emergency (ER) | payer MEDICARE ==
[2022-06-01 16:18] LABS: #Eosinphils 0.3 thou/uL (0.0-0.7); #Lymphocytes 2.5 thou/uL (1.20-3.40); #Monocytes 0.4 thou/uL (0.11-0.59); #Neutrophils 2.8 thou/uL (1.40-6.50); %Basophils 0.6 % (0.0-1.0); %Eosinophils 4.2 % (0.0-10.0); %Lymphocytes 41.4 % (21.0-51.0); %Monocytes 7.2 % (0.0-10.0); %Neutrophils 46.6 % (42.0-75.0); Hemoglobin 14.5 g/dL (12.0-16.0); Mean Corpuscular HGB CONC 32.8 g/dL (32.0-36.0); Mean Corpuscular Hemoglobin 27.8 pg (27.0-31.0); Mean Corpuscular Volume 84.9 fl (78.0-98.0); Mean Platelet Volume 8.6 fL (7.4-10.4); Platelet Count 222 10x3/uL (130-400); RBC Distribution Width 12.1 % (11.5-14.5); Red Blood Cell (RBC) Count 5.21 mill/uL (4.20-5.40); White Blood Cell (WBC) Count 6.1 10x3/uL (4.8-10.8)
[2022-06-01 16:39] LABS: ALT (SGPT) 27 U/L (8-55); AST (SGOT) 28 U/L (5-34); Albumin 4.6 g/dL (3.4-4.8); Alkaline Phosphatase 104 U/L (40-110); Anion Gap 14 mmol/L (10-20); BUN (Urea Nitrogen) 11 mg/dL (9.8-20.1); Bilirubin, Total 0.7 mg/dL (0.2-1.2); Calc. Creatinine Clearance 0 mL/min (70-130); Calcium 10.1 mg/dL (7.8-10.44); Carbon Dioxide 29 mmol/L (23-31); Chloride 102 mmol/L (98-107); Estimated GFR 63; Glucose 185 mg/dL (83-110); Potassium 4.8 mmol/L (3.5-5.1); Protein, Total 8.6 g/dL (5.8-8.1); Sodium 140 mmol/L (136-145)
[2022-06-01 17:24] LABS: Bilirubin Negative (Negative); Blood, Urine Negative (Negative); Clarity Clear (Clear); Glucose, Urine (Dipstick) Normal (Negative); Ketone, Urine Negative (Negative); Leukocyte 250 Leu/uL (Negative); Nitrite Negative (Negative); Protein, Urine (Dipstick) Negative (Neg-Trace); RBC/HPF 0-3 HPF (0-3); Specific Gravity, Urine 1.012 (1.002-1.036); Squamous Epithelial 0-3 HPF (0-3); Urobilinogen Normal mg/dL (Less than 2); pH, Urine 7.5 (5.0-9.0)
[2022-06-01 17:30] LABS: CKMB 1.8 ng/mL (0-6.6)
[2022-06-01 17:35] LABS: Bacteria/HPF Rare-Few HPF (None Seen)
== END 2022-06-01 18:15 | disposition home or self-care (01) ==
LOC: ERS 15:37
DX: R40.4 Transient alteration of awareness (principal); I10 Essential (primary) hypertension; E78.00 Pure hypercholesterolemia, unspecified; W18.30XA Fall on same level, unspecified, initial encounter; Y93.G3 Activity, cooking and baking; Z86.73 Personal history of transient ischemic attack (TIA), and cerebral infarction without residual deficits
CPT/HCPCS: 36415; 70450; 71045; 80053; 81003; 81015; 82550; 82553; 83880; 84443; 84484; 85025; 93005

== ENCOUNTER 2022-07-21 09:02 | Outpatient (CLI) | payer MEDICARE | END 2022-07-21 09:03 | disposition home or self-care (01) | LOC: BICRAD 09:02 | PROVIDERS: ATTEND Family Medicine | DX: M54.50 Low back pain, unspecified (principal); M47.816 Spondylosis without myelopathy or radiculopathy, lumbar region; I70.0 Atherosclerosis of aorta; I70.8 Atherosclerosis of other arteries | CPT/HCPCS: 72100 ==

== ENCOUNTER 2022-09-24 06:11 | Day surgery (SDC) | payer MEDICARE ==
[2022-09-23 09:59] VITALS: BMI 26.1
[2022-09-24] MEDS ORDERED: Lidocaine 1% w/Epinephrine 1:100K 20 ML VIAL ONE (06:49)
== END 2022-09-24 08:31 | disposition home or self-care (01) ==
LOC: SDC 06:11
PROVIDERS: ATTEND Internal Medicine Cardiovascular Disease
PROC: 0JPT32Z Removal of Monitoring Device from Trunk Subcutaneous Tissue and Fascia, Percutaneous Approach (ICD-10-PCS; principal; 2022-09-24)
PROC: 0JH632Z Insertion of Monitoring Device into Chest Subcutaneous Tissue and Fascia, Percutaneous Approach (ICD-10-PCS; 2022-09-24)
DX: Z45.09 Encounter for adjustment and management of other cardiac device (principal); R55 Syncope and collapse; I47.20 Ventricular tachycardia, unspecified; I25.10 Atherosclerotic heart disease of native coronary artery without angina pectoris; E11.9 Type 2 diabetes mellitus without complications; I10 Essential (primary) hypertension; I25.2 Old myocardial infarction; Z86.73 Personal history of transient ischemic attack (TIA), and cerebral infarction without residual deficits; Z87.891 Personal history of nicotine dependence; Z79.82 Long term (current) use of aspirin; Z79.84 Long term (current) use of oral hypoglycemic drugs; Z79.899 Other long term (current) drug therapy; Z88.0 Allergy status to penicillin; Z88.5 Allergy status to narcotic agent; Z88.8 Allergy status to other drugs, medicaments and biological substances; Z95.2 Presence of prosthetic heart valve
CPT/HCPCS: 33285; 33286; C1764